=== PATIENT | male | born 2000 | race Caucasian/White ===

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

== ENCOUNTER 2021-01-11 20:57 | Emergency (ER) | payer MEDICAID, SELFPAY ==
--- NOTE | 2021-01-11 20:52 | ECG_ITS ---
APPROVED REPORT Exam: Resting ECG HR:71 bpm ECG Measurements Heart Rate 71 AXES [place] 156 P 76 QRSd 92 QRS 77 QT 360 T 62 QTc 391 Conclusion Normal sinus rhythm Normal ECG Electronically signed by : Mariusz Soriano MD 01/13/2021 12:18:48
[2021-01-11 20:57] VITALS: BP 124/89; PULSE 77; RESP 14; TEMP 37.7; O2SAT 99
--- NOTE | 2021-01-11 21:06 | XR_ITS ---
PROCEDURE INFORMATION: Exam: XR Chest Exam date and time: 01/11/2021 9:06 PM Age: 20 years old Clinical indication: Sternal or substernal pain; Additional info: angelica BEE TECHNIQUE: Imaging protocol: XR of the chest. Views: 2 views. COMPARISON: CR XR CHEST 2V 01/24/2020 7:47 PM FINDINGS: Lungs: Unremarkable. No consolidation. Benign elevation of the left hemidiaphragm, as on prior examination of 01/24/2020. Pleural spaces: Unremarkable. No pleural effusion. No pneumothorax. Heart/Mediastinum: Unremarkable. No cardiomegaly. Bones/joints: Unremarkable. IMPRESSION: There is no evidence of acute intrathoracic disease.
--- NOTE | 2021-01-11 21:06 | CT_ITS ---
PROCEDURE INFORMATION: Exam: CTA Chest With Contrast Exam date and time: 01/11/2021 9:06 PM Age: 20 years old Clinical indication: Sternal or substernal pain; Additional info: Chest pain, SOA TECHNIQUE: Imaging protocol: Computed tomographic angiography of the chest with contrast. 3D rendering (Not supervised by radiologist): MIP and/or 3D reconstructed images were created by the technologist. Radiation optimization: All CT scans at this facility use at least one of these dose optimization techniques: automated exposure control; mA and/or kV adjustment per patient size (includes targeted exams where dose is matched to clinical indication); or iterative reconstruction. Contrast material: ISOVUE 370; Contrast volume: 70 ml; Contrast route: INTRAVENOUS (IV); COMPARISON: CR XR CHEST 2V 01/11/2021 9:15 PM FINDINGS: Pulmonary arteries: The pulmonary trunk, main, and branch pulmonary arteries contain no filling defects. Aorta: Unremarkable. No aortic aneurysm. No aortic dissection. Lungs: Unremarkable. No consolidation. No masses. Pleural spaces: Unremarkable. No pneumothorax. No pleural effusion. Heart: No cardiomegaly. No pericardial effusion. Heart RV/LV ratio: Within normal limits. Coronary arteries: There is no evidence of significant coronary artery calcifications. Mediastinal space: No evidence of mediastinal or hilar mass. Increased density within the anterior mediastinum, representing residual thymic tissue within the anterior mediastinum. Lymph nodes: Unremarkable. No enlarged lymph nodes. Bones/joints: Unremarkable. No acute fracture. Soft tissues: Bilateral benign extrarenal pelves of the kidneys identified. This is felt to be of no clinical significance. IMPRESSION: 1. No evidence of main or branch pulmonary embolism. 2. No evidence of acute process within the chest.
[2021-01-11 21:16] LABS: Basophils % 0.9 % (0.1-2.0); Eosinophils # 0.1 K/mm3 (0.0-0.4); Hematocrit 43.8 % (42.0-52.0); Hemoglobin 15.1 g/dL (14.1-18.0); Lymphocytes # 1.6 K/mm3 (0.7-4.5); Lymphocytes % 36.2 % (10-50); Mean Corpuscular HGB Conc 34.4 g/dL (31.8-35.4); Mean Corpuscular Hemoglobin 30.2 pg (27.0-31.2); Mean Corpuscular Volume 87.7 fl (80-94); Mean Platelet Volume 7.5 fl (7.4-10.4); Monocytes # 0.3 K/mm3 (0.1-1.0); Monocytes % 6.4 % (1.7-9.3); Neutrophils # 2.5 K/mm3 (1.8-7.8); Neutrophils % 54.5 % (37.0-80.0); Platelet Count 274 K/mm3 (142-424); Red Blood Count 4.99 M/mm3 (4.60-6.20); Red Cell Distribution Width 12.5 % (11.5-17.5); White Blood Count 4.5 K/mm3 (4.5-13.0)
[2021-01-11 21:20] LABS: Alanine Aminotransferase 56 U/L (12-78); Albumin Level 4.5 g/dl (3.5-5.0); Alkaline Phosphatase 96 U/L (38-126); Anion Gap 7.9 mEq/L (5-15); Aspartate Amino Transferase 50 U/L (17-59); Bilirubin,Direct 0.1 mg/dl (0.0-0.4); Bilirubin,Indirect 1.3 mg/dL (0.0-0.9); Bilirubin,Total 1.4 mg/dl (0.2-1.3); Bilirubin,Unconjugated 1.3 mg/dL (0.0-1.1); Blood Urea Nitrogen 13 mg/dl (9-20); Calcium 9.2 mg/dl (8.4-10.2); Carbon Dioxide 29 mmol/L (22.0-30.0); Chloride 105 mmol/L (98-107); Creatinine Clearance Estimated 133 mL/min (50-200); Estimated Glomerular Filt Rate 125 ml/min (>60); GFR (African American) 151 ML/MIN (>60); Glucose 93 mg/dl (74-100); Potassium 3.9 mmoL/L (3.5-5.1); Sodium 138 mmol/L (136-145); Total Protein,Serum 7.2 g/dl (6.3-8.2)
--- NOTE | 2021-01-11 21:24 | HMH.EDSOB ---
ED Disposition Clinical Impression: Pleurisy Disposition: Home, Self-Care Condition on Discharge: Good Instructions: DI for Pleurisy Additional Instructions: use meds and see pcp for follow up Prescriptions: Meloxicam [Mobic 15 mg tab] 15 mg PO DAILY #10 tab Transmission Status: [id number] Referrals: Grant Mcdaniel [Primary Care Provider] - - Critical Care Critical Care Time: No Attestation: On 01/11/21, the high probability of a clinically significant, sudden or life threatening deterioration of the following system(s) required my full and direct attention, intervention and personal management. The time I documented below is in addition to time spent performing reported procedures but includes the following listed in this critical care notation. Medical Decision Making - Medical Records Medical records reviewed: Yes: I reviewed the patient's medical records. - Jimmy Inquiry Pt receiving controlled substance: No Vital Signs: 01/11/21 20:57 Temperature 99.8 F H Temperature Source Oral Pulse Rate [Right Radial] 77 Respiratory Rate 14 Blood Pressure [Right Arm] 124/89 Blood Pressure Mean [Right Arm] 100 Blood Pressure Source [Right Arm] Automatic Cuff Blood Pressure Position [Right Arm] Sitting 02 Sat by Pulse Oximetry 99 Oxygen Delivery Method Room Air - Lab Data Lab results reviewed: Yes: I reviewed the patient's lab results. Lab Results 01/11/21 20:59: WBC 4.5, RBC 4.99, Hgb 15.1, Hct 43.8, MCV 87.7, MCH 30.2, MCHC 34.4, RDW 12.5, Plt Count 274, MPV 7.5, Neut % (Auto) 54.5, Lymph % (Auto) 36.2, Mcpherson % (Auto) 6.4, Eos % (Auto) 2.0, Baso % (Auto) 0.9, Neut # (Auto) 2.5, Lymph # (Auto) 1.6, [place]son # (Auto) 0.3, Eos # (Auto) 0.1, Baso # (Auto) 0.0, ESR 3 01/11/21 20:59: Sodium 138, Potassium 3.9, Chloride 105, Carbon Dioxide 29, Anion Gap 7.9, BUN 13, Creatinine 0.80, Estimated Creat Clear 133, Estimated GFR 125, Est GFR ( Amer) 151, Glucose 93, Calcium 9.2, Total Bilirubin 1.4 H, Direct Bilirubin 0.1, Conjugated Bilirubin 0.0, Indirect Bilirubin 1.3 H, Unconjugated Bilirubin 1.3 H, AST 50, ALT 56, Alkaline Phosphatase 96, Troponin I < 0.01, C-Reactive Protein 0.5, Total Protein 7.2, Albumin 4.5, Procalcitonin < 0.030 Result diagrams: 01/11/21 20:59 01/11/21 20:59 Orders (Tests/Meds): ED MEDICATIONS Generic Name Dose Route Start Last Admin Trade Name Freq PRN Reason Stop Dose Admin Sodium Chloride 1,000 mls @ 999 mls/hr 01/11/21 21:15 01/11/21 21:15 Sod Chlor 0.9% 1000ml Bag IV 01/11/21 22:15 999 mls/hr .Q1H1M ALIVIA Administration Discontinued Medications Generic Name Dose Route Start Last Admin Trade Name Freq PRN Reason Stop Dose Admin Iopamidol 70 ml 01/11/21 21:37 01/11/21 21:38 Iopamidol-370 (76%);100ml Bottle IV 01/11/21 21:38 70 ml ONCE ONE Administration Ketorolac Tromethamine 30 mg 01/11/21 21:06 01/11/21 21:15 Ketorolac 30mg/Ml Vial IV 01/11/21 21:07 30 mg ONCE ONE Administration Methylprednisolone Sodium Succinate 125 mg 01/11/21 21:06 01/11/21 21:15 Methylprednisolone Sod Succ 125mg Vial IV 01/11/21 21:07 125 mg ONCE ONE Administration Sodium Chloride 40 ml 01/11/21 21:37 01/11/21 21:38 0.9 % Sodium Chloride 50 Ml Vial IV 01/11/21 21:38 40 ml ONCE ONE Administration Sodium Chloride 10 ml 01/11/21 21:37 01/11/21 21:38 Sodium Chloride 0.9% 10ml Syr (Rad Only) IV 01/11/21 21:38 10 ml ONCE ONE Administration ORDERS Category Date Time Status Troponin I Q3H Lab 01/12/21 00:15 Ordered Troponin I Q3H Lab 01/12/21 03:15 Ordered - Radiology Data #1 Image(s): Chest Image Reviewed: Yes I have reviewed radiologist's interpretation Preliminary Findings: Normal/NAD - CT Data CT Scan: Chest Time Received: 22:[address] Reviewed: Yes: I have viewed the radiologist's interpretation Preliminary Findings: Normal/NAD - ECG Data Tracing #1 Normal Sinus Rhythm: Yes
[2021-01-11 21:26] LABS: C-Reactive Protein 0.5 mg/L (0-4)
[2021-01-11 21:41] LABS: Procalcitonin < 0.030 ng/mL (0.0-2.0); Troponin I < 0.01 ng/ml (0.00-0.034)
--- NOTE | 2021-01-11 21:45 | ECG_ITS ---
APPROVED REPORT Exam: Resting ECG HR:70 bpm ECG Measurements Heart Rate 70 AXES NM 126 P 1 QRSd 104 QRS 50 QT 396 T 11 QTc 427 Conclusion Normal sinus rhythm Normal ECG Electronically signed by : Mariusz Soriano MD 01/13/2021 12:18:38
[2021-01-11 21:46] LABS: Erythrocyte Sedimentation Rate 3 mm/hr (0-15)
[2021-01-11 22:43] VITALS: BP 113/70; PULSE 81; RESP 16; TEMP 36.8; O2SAT 99
== END 2021-01-11 23:01 | disposition home or self-care (01) ==
PROVIDERS: Emergency Provider Emergency Medicine; PCP Family Medicine
DX: R09.1 Pleurisy (principal); F41.8 Other specified anxiety disorders
CPT/HCPCS: 71046; 71275; 80048; 80076; 84145; 84484; 85025; 85651; 86140; 93005; 96365; 96375; 99283; Q9967

== ENCOUNTER → 2021-01-28 11:46 | Outpatient (CLI) | payer MEDICAID, SELFPAY | PROVIDERS: Visit Provider Nurse Practitioner | DX: Z20.822 Contact with and (suspected) exposure to COVID-19 (principal) | CPT/HCPCS: C9803; U0003; U0005 ==

== ENCOUNTER 2021-01-28 11:52 | Emergency (ER) | payer MEDICAID, SELFPAY ==
[2021-01-28 12:15] VITALS: BP 0/0; PULSE 0; RESP 0; TEMP -17.7; TEMP 0
== END 2021-01-28 12:17 | disposition left against medical advice (07) ==
LOC: UTC 11:57
PROVIDERS: Emergency Provider Nurse Practitioner; PCP Family Medicine
DX: Z53.21 Procedure and treatment not carried out due to patient leaving prior to being seen by health care provider (principal)

== ENCOUNTER 2021-02-01 15:14 | Emergency (ER) | payer MEDICAID, SELFPAY ==
[2021-02-01 15:15] VITALS: BP 121/81; PULSE 89; RESP 19; TEMP 36.9; O2SAT 98; BMI 19.3
--- NOTE | 2021-02-01 15:34 | HMH.EDUTC ---
[facility] [place] Disposition Clinical Impression: Sinusitis Qualifiers: Sinusitis location: maxillary Chronicity: acute Recurrence: non-recurrent Qualified Code(s): J01.00 - Acute maxillary sinusitis, unspecified Disposition: Home, Self-Care Condition on Discharge: Good Instructions: DI for Sinusitis Additional Instructions: Start antibiotic patient to take as ordered for a full length of time even if you feel better. Sinus infections do not get better overnight. It may take 2-3 days to notice much improvement so be sure to use conservative measures as discussed for symptoms. Flonase 1 spray each nostril daily to help with nasal congestion, sinus and ear pressure/information Increase fluids Humidifier/vaporizer as needed Tylenol and ibuprofen as needed for fever or pain. If symptoms do not improve or get worse return or be seen in the ER Follow-up with primary care this week Prescriptions: Fluticasone Propionate [Flonase 50mcg nasal spray 16gm] 1 spr NS DAILY 14 Days #9.9 ml Transmission Status: Pending to [id number] Azithromycin [Zithromax 250mg tab] 250 mg PO DIRECTED #6 tab Transmission Status: Pending to [id number] Referrals: Grant Mcdaniel [Primary Care Provider] - Time of Disposition: 15:37 Medical Decision Making - Jimmy Inquiry Pt receiving controlled substance: No Vital Signs: 02/01/21 15:15 Temperature 98.4 F Temperature Source Oral Pulse Rate [Right Brachial] 89 Respiratory Rate 19 Blood Pressure [Right Arm] 121/81 Blood Pressure Mean [Right Arm] 94 Blood Pressure Source [Right Arm] Automatic Cuff Blood Pressure Position [Right Arm] Sitting 02 Sat by Pulse Oximetry 98 Oxygen Delivery Method Room Air [facility] [place] HPI - General Chief complaint: Urgent [facility] Stated complaint: sore throat, cough,vomiting, SOUZA,runny nose Time Seen by Provider: 02/01/21 15:35 Mode of Arrival: Ambulatory Source of Information: Patient, Parent(s) Limitations: No Limitations Description of Symptoms (Recalled from Triage Doc. by RN): PATIENT C/O COUGH, SNEEZING, CHEST CONGESTION, HEADACHES, RUNNY NOSE AND FEVER HEENT Symptoms (Recalled from RN notes): Yes Resp Symptoms (Recalled from RN notes): Yes Skin Symptoms (Recalled from RN notes): No MS Symptoms (Recalled from RN notes): No Functional Status (Recalled from RN notes): WNL - History of Present Illness Provider Complaint: 20 yr old male presents for runny nose,coughing up green sputum,body aches,headache,sore throat and pain in chest with coughing for 4 days. - Related Data Previous Rx's Medication Instructions Recorded Azithromycin [Zithromax 250mg 250 mg PO DIRECTED #6 tab 02/01/21 tab] Fluticasone Propionate [Flonase 1 spr NS DAILY 14 Days #9.9 ml 02/01/21 50mcg nasal spray 16gm] Allergies Allergy/AdvReac Type Severity Reaction Status Date / Time Penicillins [PENICILLINS] Allergy Intermediate Verified 05/04/19 18:32 - Worker's Comp Is this a Worker's Comp case?: No [facility] History - Hepatitis A Screen Drug use history?: No High risk sexual behaviors?: No History of sexually transmitted infection?: No Currently employed?: No Childcare worker?: No Do you have indoor plumbing?: Yes Do you have electricity?: Yes Attestation statement:: This patient has been screened for Hepatitis A risk factors. I have reviewed the patient's past medical history: Yes Medical History: Reports:: Anxiety, Depression Denies:: Cancer, Diabetes Mellitus Type 1, Diabetes Mellitus Type 2, Internal Pacemaker, MRSA Other Medical History: Reports: Other Laterality Cases: Right: Other Other Surgeries: Yes: No Previous Surgery, Other. No: Pacemaker Amputation: No Fractures: Yes (right thumb) Comment: Teeth removed - Social History Smoking Status: Never smoker Alcohol Intake: never Alcohol Intake Frequency:: 0-2 drinks per day Substance Use Type: denies use Occupational Status: employed Housing: house Household Members: [facility]
[2021-02-01 15:41] VITALS: BP 121/81; PULSE 89; RESP 19; TEMP 36.9; O2SAT 98
[2021-02-01 15:49] LABS: Adenovirus,PCR Not Detected (NotDetected); Bordetella Pertussis Not Detected (NotDetected); Chlamydophila Pneumoniae, PCR Not Detected (NotDetected); Coronavirus 19, PCR Not Detected (NotDetected); Coronavirus 229E Not Detected (NotDetected); Coronavirus NL63 Not Detected (NotDetected); Coronavirus OC43 Not Detected (NotDetected); Coronovirus HKU1,PCR Not Detected (NotDetected); Human Metapneumovirus Not Detected (NotDetected); Influenza A, PCR Not Detected (NotDetected); Influenza AH1, 2009 Not Detected (NotDetected); Influenza AH1, PCR Not Detected (NotDetected); Influenza AH3,PCR Not Detected (NotDetected); Influenza B, PCR Not Detected (NotDetected); Mycoplasma Pneumoniae, PCR Not Detected (NotDetected); Parainfluenza 1, PCR Not Detected (NotDetected); Parainfluenza 2, PCR Not Detected (NotDetected); Parainfluenza 3, PCR Not Detected (NotDetected); Parainfluenza 4, PCR Not Detected (NotDetected); Respiratory Syncytial Virus Not Detected (NotDetected); Rhinovirus/Enterovirus Not Detected (NotDetected)
== END 2021-02-01 15:45 | disposition home or self-care (01) ==
PROVIDERS: Emergency Provider Nurse Practitioner Family; PCP Family Medicine
DX: J01.00 Acute maxillary sinusitis, unspecified (principal); Z20.822 Contact with and (suspected) exposure to COVID-19; F41.8 Other specified anxiety disorders
CPT/HCPCS: 87581; 87632; 87798; 99202; C9803; G0463; U0003; U0005

== ENCOUNTER 2021-08-03 13:35 | Emergency (ER) | payer MEDICAID, SELFPAY ==
[2021-08-03 13:48] VITALS: BP 121/76; PULSE 82; RESP 18; TEMP 36.8; O2SAT 99
--- NOTE | 2021-08-03 14:09 | CT_ITS ---
FINAL REPORT CLINICAL HISTORY: RLQ pain, n/v COMPARISON: January 24, 2020 FINDINGS: CT OF THE ABDOMEN AND PELVIS WITH CONTRAST Axial CT images of the abdomen and pelvis were obtained after the administration of intravenous contrast. Coronal reformatted images were also obtained and reviewed.This study was performed with techniques to keep radiation doses as low as reasonably achievable (ALARA). Individualized dose reduction techniques using automated exposure control or adjustment of mA and/or kV according to the patient's size were employed. Abdomen: The lung bases are clear. The heart is normal in size. The liver has an unremarkable appearance, without evidence of mass or biliary ductal dilatation. The gallbladder is not identified and could be surgically absent. The spleen is unremarkable. No adrenal mass is present. The pancreas has an unremarkable appearance. The kidneys are normal, without evidence of mass or hydronephrosis. The aorta is normal in caliber. There is no free fluid or adenopathy. No mass or abnormal fluid collection is seen. Pelvis: The appendix partially visualized and normal where seen. The urinary bladder is unremarkable. No inflammatory process is seen. There is no evidence of mass or adenopathy. There is no evidence of bowel obstruction. There is mild wall thickening of the transverse colon and hepatic flexure of the colon of uncertain significance. IMPRESSION: Partially visualized appendix is normal were seen. Mild wall thickening of the transverse colon and hepatic flexure of the colon of uncertain significance could represent mild colitis. Gallbladder not identified and possibly surgically absent. Reviewed, Interpreted and Dictated by Felipe Solis III, MD Transcribed by Crispin Holman Authenticated and [facility]
--- NOTE | 2021-08-03 14:09 | HMH.EDGENADL ---
ED Disposition Clinical Impression: Colitis Abdominal pain Qualifiers: Abdominal location: right lower quadrant Qualified Code(s): R10.31 - Right lower quadrant pain Disposition: Home, Self-Care Condition on Discharge: Fair Instructions: DI for Acute Abdominal Pain, DI for Colitis Additional Instructions: You have been evaluated for abdominal pain, diagnosed with colitis. This is inflammation of the colon, and the right side of the abdomen. Your appendix was seen on the CT scan and does not appear to be infected at this time. Please take Bentyl for cramps. Zofran for nausea. Tylenol and ibuprofen for pain and fever. Follow-up closely with your primary care doctor within 24 to 48 hours. Follow a clear liquid diet. We cannot totally exclude a very early appendicitis. Please return to the emergency department at once for any new or worsening symptoms, pain, fevers, inability to eat, other concerns. Prescriptions: Ondansetron [Zofran 4mg ODT] 4 mg PO Q6HP PRN #12 tab PRN Reason: Nausea Transmission Status: [id number] Dicyclomine HCl [Bentyl 10mg capsule] 10 mg PO QID PRN #20 cap PRN Reason: Cramping Transmission Status: Pending [id number] Referrals: Grant Mcdaniel [Primary Care Provider] - Time of Disposition: 16:03 - Critical Care Critical Care Time: No Attestation: On 08/03/21, the high probability of a clinically significant, sudden or life threatening deterioration of the following system(s) required my full and direct attention, intervention and personal management. The time I documented below is in addition to time spent performing reported procedures but includes the following listed in this critical care notation. Medical Decision Making - Medical Records Medical records reviewed: Yes: I reviewed the patient's medical records. - Jimmy Inquiry Pt receiving controlled substance: No Vital Signs: 08/03/21 13:48 Temperature 98.2 F Temperature Source Oral Pulse Rate [Left Radial] 82 Respiratory Rate 18 Blood Pressure [Left Arm] 121/76 Blood Pressure Mean [Left Arm] 91 Blood Pressure Source [Left Arm] Automatic Cuff Blood Pressure Position [Left Arm] Sitting 02 Sat by Pulse Oximetry 99 Oxygen Delivery Method Room Air - Lab Data Lab Results 08/03/21 14:00: WBC 4.3 L, RBC 5.17, Hgb 15.8, Hct 43.6, MCV 84.2, MCH 30.6, MCHC 36.3 H, RDW 12.1, Plt Count 239, MPV 7.1 L, Neut % (Auto) 51.3, Lymph % (Auto) 37.4, Lea % (Auto) 8.3, Eos % (Auto) 2.4, Baso % (Auto) 0.6, Neut # (Auto) 2.2, Lymph # (Auto) 1.6, Lea # (Auto) 0.4, Eos # (Auto) 0.1, Baso # (Auto) 0.0 08/03/21 14:00: Sodium 139, Potassium 3.9, Chloride 103, Carbon Dioxide 27, Anion Gap 12.9, BUN 15, Creatinine 0.80, Estimated Creat Clear 132, Estimated GFR 123, Est GFR ( Amer) 149, Glucose 86, Calcium 9.6, Total Bilirubin 3.6 H, AST 68 H, ALT 107 H, Alkaline Phosphatase 101, Total Protein 7.7, Albumin 4.7, Globulin 3.0, Albumin/Globulin Ratio 1.6, Lipase 52 Result diagrams: 08/03/21 14:00 08/03/21 14:00 Orders (Tests/Meds): ED MEDICATIONS Discontinued Medications Generic Name Dose Route Start Last Admin Trade Name [place] PRN Reason Stop Dose Admin Iopamidol 75 ml 08/03/21 14:22 08/03/21 14:23 Iopamidol-370 (76%);100ml Bottle IV 08/03/21 14:23 75 ml ONCE ONE Administration Ketorolac Tromethamine 15 mg 08/03/21 14:09 08/03/21 15:40 Ketorolac 30mg/Ml Vial IV 08/03/21 14:10 15 mg ONCE ONE Administration Ondansetron HCl 4 mg 08/03/21 14:09 08/03/21 15:41 Ondansetron 4mg/2ml Vial IV 08/03/21 14:10 4 mg ONCE ONE Administration Sodium Chloride 10 ml 08/03/21 14:22 08/03/21 14:23 Sodium Chloride 0.9% 10ml Syr (Rad Only) IV 08/03/21 14:23 10 ml ONCE ONE Administration ORDERS Category Date Time Status Rapid PCR Covid and Flu A/B Stat Lab 08/03/21 15:01 Ordered Urinalysis and Microscopic Stat Lab 08/03/21 14:09 Ordered - CT Data CT Scan
[2021-08-03 14:18] LABS: Basophils % 0.6 % (0.1-2.0); Eosinophils # 0.1 K/mm3 (0.0-0.4); Eosinophils % 2.4 % (0.1-12.0); Hematocrit 43.6 % (42.0-52.0); Hemoglobin 15.8 g/dL (14.1-18.0); Lymphocytes # 1.6 K/mm3 (0.7-4.5); Lymphocytes % 37.4 % (10-50); Mean Corpuscular HGB Conc 36.3 g/dL (31.8-35.4); Mean Corpuscular Hemoglobin 30.6 pg (27.0-31.2); Mean Corpuscular Volume 84.2 fl (80-94); Mean Platelet Volume 7.1 fl (7.4-10.4); Monocytes # 0.4 K/mm3 (0.1-1.0); Monocytes % 8.3 % (1.7-9.3); Neutrophils # 2.2 K/mm3 (1.8-7.8); Neutrophils % 51.3 % (37.0-80.0); Platelet Count 239 K/mm3 (142-424); Red Blood Count 5.17 M/mm3 (4.60-6.20); Red Cell Distribution Width 12.1 % (11.5-17.5); White Blood Count 4.3 K/mm3 (4.5-13.0)
[2021-08-03 14:22] LABS: Alanine Aminotransferase 107 U/L (12-78); Albumin Level 4.7 g/dl (3.5-5.0); Albumin/Globulin Ratio 1.6 (1.1-1.8); Alkaline Phosphatase 101 U/L (38-126); Anion Gap 12.9 mEq/L (5-15); Aspartate Amino Transferase 68 U/L (17-59); Bilirubin,Total 3.6 mg/dl (0.2-1.3); Blood Urea Nitrogen 15 mg/dl (9-20); Calcium 9.6 mg/dl (8.4-10.2); Carbon Dioxide 27 mmol/L (22.0-30.0); Chloride 103 mmol/L (98-107); Creatinine Clearance Estimated 132 mL/min (50-200); Estimated Glomerular Filt Rate 123 ml/min (>60); GFR (African American) 149 ML/MIN (>60); Glucose 86 mg/dl (74-100); Lipase 52 U/L (23-300); Potassium 3.9 mmoL/L (3.5-5.1); Sodium 139 mmol/L (136-145); Total Protein,Serum 7.7 g/dl (6.3-8.2)
[2021-08-03 16:43] VITALS: BP 102/64; PULSE 55; RESP 18; TEMP 36.8; O2SAT 99
== END 2021-08-03 16:45 | disposition home or self-care (01) ==
PROVIDERS: Emergency Provider Emergency Medicine; PCP Family Medicine
DX: K52.9 Noninfective gastroenteritis and colitis, unspecified; Z88.0 Allergy status to penicillin
CPT/HCPCS: 74177; 80053; 83690; 85025; 96374; 96375; 99284; J2405; Q9967

== ENCOUNTER 2021-10-30 23:56 | Emergency (ER) | payer MEDICAID, SELFPAY ==
[2021-10-30 23:57] VITALS: BP 158/86; PULSE 87; RESP 19; TEMP 36.8; O2SAT 97; BMI 19.3
--- NOTE | 2021-10-30 23:57 | ECG_ITS ---
APPROVED REPORT Exam: Resting ECG HR:70 bpm ECG Measurements Heart Rate 70 AXES AZ 163 P 71 QRSd 92 QRS 65 QT 343 T 68 QTc 365 Conclusion SINUS RHYTHM NORMAL ECG UNCONFIRMED REPORT Electronically signed by : Mariusz Soriano MD 11/01/2021 15:25:38
[2021-10-31] VITALS (9 sets, daily range): BP systolic 112–118; BP diastolic 64–72; PULSE 58–74; RESP 12–18; TEMP 36.6–36.9; O2SAT 97–99; BMI 19.3
--- NOTE | 2021-10-31 00:04 | XR_ITS ---
PROCEDURE INFORMATION: Exam: XR Chest Exam date and time: 10/31/2021 12:20 AM Age: 21 years old Clinical indication: Cough and fever; Additional info: Fever, cough, chest pain, poss covid TECHNIQUE: Imaging protocol: Radiologic exam of the chest. Views: 2 views. COMPARISON: CR XR CHEST 2V 01/11/2021 9:15 PM FINDINGS: Lungs: Unremarkable. No consolidation. Pleural spaces: Unremarkable. No pleural effusion. No pneumothorax. Heart/Mediastinum: Unremarkable. No cardiomegaly. Bones/joints: Unremarkable. IMPRESSION: No acute findings.
--- NOTE | 2021-10-31 00:07 | CT_ITS ---
PROCEDURE INFORMATION: Exam: CTA Chest With Contrast Exam date and time: 10/31/2021 12:28 AM Age: 21 years old Clinical indication: Cough and dyspnea and fever and shortness of breath; Additional info: SOA, fever, dyspnea, HX covid poss new covid TECHNIQUE: Imaging protocol: Computed tomographic angiography of the chest with contrast. 3D rendering (Not supervised by radiologist): MIP and/or 3D reconstructed images were created by the technologist. Radiation optimization: All CT scans at this facility use at least one of these dose optimization techniques: automated exposure control; mA and/or kV adjustment per patient size (includes targeted exams where dose is matched to clinical indication); or iterative reconstruction. Contrast material: ISOVUE 370; Contrast volume: 70 ml; Contrast route: INTRAVENOUS (IV); COMPARISON: CT ANGIO CHEST PE PROTOCOL 01/11/2021 9:28 PM FINDINGS: Pulmonary arteries: Normal. No pulmonary emboli. Aorta: Unremarkable. No aortic aneurysm. No aortic dissection. Lungs: Unremarkable. No consolidation. No masses. Pleural spaces: Unremarkable. No pneumothorax. No pleural effusion. Heart: Unremarkable. No cardiomegaly. No pericardial effusion. Lymph nodes: Unremarkable. No enlarged lymph nodes. Bones/joints: Unremarkable. No acute fracture. Soft tissues: Unremarkable. IMPRESSION: No acute findings.
[2021-10-31 00:12] LABS: Coronavirus 19, PCR Not Detected (NotDetected); Influenza A, PCR Not Detected (NotDetected); Influenza B, PCR Not Detected (NotDetected)
[2021-10-31 00:13] LABS: Basophils # 0.1 K/mm3 (0-0.2); Basophils % 1.3 % (0.1-2.0); Eosinophils # 0.3 K/mm3 (0.0-0.4); Hematocrit 42.8 % (42.0-52.0); Hemoglobin 14.9 g/dL (14.1-18.0); Lymphocytes # 1.9 K/mm3 (0.7-4.5); Lymphocytes % 28.2 % (10-50); Mean Corpuscular HGB Conc 34.7 g/dL (31.8-35.4); Mean Corpuscular Hemoglobin 30.6 pg (27.0-31.2); Mean Corpuscular Volume 88.2 fl (80-94); Mean Platelet Volume 7.4 fl (7.4-10.4); Monocytes # 0.6 K/mm3 (0.1-1.0); Monocytes % 8.1 % (1.7-9.3); Neutrophils % 58.4 % (37.0-80.0); Platelet Count 239 K/mm3 (142-424); Red Blood Count 4.85 M/mm3 (4.60-6.20); Red Cell Distribution Width 12.9 % (11.5-17.5); White Blood Count 6.9 K/mm3 (4.5-13.0)
[2021-10-31 00:15] LABS: Chloride 103 mmol/L (98-107); Potassium 3.7 mmoL/L (3.5-5.1); Sodium 141 mmol/L (136-145)
[2021-10-31 00:17] LABS: Alanine Aminotransferase 60 U/L (12-78); Alkaline Phosphatase 144 U/L (38-126); Anion Gap 11.7 mEq/L (5-15); Aspartate Amino Transferase 52 U/L (17-59); Bilirubin,Direct 0.3 mg/dl (0.0-0.4); Bilirubin,Indirect 2.3 mg/dL (0.0-0.9); Bilirubin,Total 2.6 mg/dl (0.2-1.3); Bilirubin,Unconjugated 2.3 mg/dL (0.0-1.1); Blood Urea Nitrogen 14 mg/dl (9-20); Carbon Dioxide 30 mmol/L (22.0-30.0); Creatinine Clearance Estimated 113 mL/min (50-200); Estimated Glomerular Filt Rate 108 ml/min (>60); GFR (African American) 130 ML/MIN (>60)
[2021-10-31 00:18] LABS: Albumin Level 4.8 g/dl (3.5-5.0); Calcium 8.6 mg/dl (8.4-10.2); Glucose 87 mg/dl (74-100); Total Protein,Serum 7.5 g/dl (6.3-8.2)
[2021-10-31 00:23] LABS: C-Reactive Protein 4.9 mg/L (0-4)
--- NOTE | 2021-10-31 00:29 | PC.NURSE ---
Pt gone to RAD
--- NOTE | 2021-10-31 00:38 | PC.NURSE ---
pt back from RAD
[2021-10-31 00:47] LABS: Troponin I < 0.01 ng/ml (0.00-0.034)
[2021-10-31 01:00] LABS: Procalcitonin 0.036 ng/mL (0.0-2.0)
[2021-10-31 01:34] LABS: Erythrocyte Sedimentation Rate 7 mm/hr (0-15)
--- NOTE | 2021-10-31 02:25 | PC.NURSE ---
Pt resting in bed. No needs or complaints voiced.
[2021-10-31 02:48] LABS: Troponin I < 0.01 ng/ml (0.00-0.034)
[2021-10-31 03:09] LABS: Amylase 61 U/L (30-110); Lipase 66 U/L (23-300)
--- NOTE | 2021-10-31 03:30 | HMH.EDCP ---
Discharge Plan Disposition Patient Disposition: Home, Self-Care Prescriptions Prescriptions: New azithromycin [azithromycin] 250 mg tablet 250 mg PO DIRECTED Qty: 6 0RF Rx Instructions: Take two (2) tablets on day #1, then one (1) tablet day #2 thru #5 No Action dextroamphetamine-amphetamine 10 mg capsule,extended release 24hr 10 mg PO DAILY Label Comments: TAKE 1 CAPSULE BY MOUTH DAILY. albuterol sulfate [ProAir HFA] 90 mcg/actuation HFA aerosol inhaler 1 - 2 puff INHALATION Q6HP PRN (Reason: shortness of breath/wheezing) Label Comments: INHALE 2 PUFFS INTO THE LUNGS FOUR TIMES DAILY: AT 8 AM, NOON, 4 PM & 8 PM escitalopram oxalate 10 mg tablet 10 mg PO DAILY Label Comments: TAKE 1 TABLET BY MOUTH ONCE DAILY. Referrals Follow up/Referrals: Grant Mcdaniel [Primary Care Provider] - See instructions Clinical Impressions Clinical Impression: Bronchitis Instructions Patient Instructions: DI for Atypical Chest Pain Discharge ED Provider: Sergey Hernandez Chest Pain HPI General Chief Complaint: Chest Pain Stated Complaint: chest pain Time Seen by Provider: 10/31/21 03:31 Mode of Arrival: Wheelchair Source of Information: Patient and Medical Record Limitations: No Limitations Description of Symptoms (Recalled from ER Triage Doc. by RN): Pt c/o R&L lateral chest pain, soa on extertion, productive cough, fever, and chills. Pt states most symptoms began yesterday (10/29) but the chest pain began tonight (10/30). 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 History of Present Illness HPI narrative: chest pain and sob with fever and prod cough x 2 days MD complaint: chest pain Onset (ago): day(s) Duration: intermittent Pain location: left chest Severity: moderate Quality: aching Risk Factors for CAD: Family Hx of CAD JOS Score for Non-Stemi Age of Patient: <30 years old Heart Rate: 50-69 bpm Systolic Blood Pressure: 100-119 mmHg Serum Creatinine: 0.80-1.19 mg/dl CHF [place] Class: I-No CHF Other Risk Factors: None Non-Stemi Risk Score: 53 Related Data Home Medications Medication Instructions Recorded Confirmed albuterol sulfate 90 mcg/actuation 1 - 2 puff inhalation Q6HP PRN 10/31/21 10/31/21 aerosol inhaler (ProAir HFA) shortness of breath/wheezing dextroamphetamine-amphetamine ER 10 mg PO DAILY adhd 10/31/21 10/31/21 10 mg 24hr capsule,extend release escitalopram oxalate 10 mg tablet 10 mg PO DAILY Anxiety 10/31/21 10/31/21 Previous Rx's Medication Instructions Recorded azithromycin 250 mg tablet 250 mg PO DIRECTED #6 tabs 10/31/21 Allergies Allergy/AdvReac Type Severity Reaction Status Date / Time Penicillins [PENICILLINS] Allergy Intermediate Verified 05/04/19 18:32 PFSH PFS Social History Smoking Status: Current every day smoker second hand exposure: No alcohol intake: never substance use type: denies use current occupational status: employed Travel in the last 8 weeks: None household members: family housing: house current occupational exposures/hazards: No caffeine: Yes ROS Obtained: Yes All systems reviewed & no additional complaints except as documented Physical Exam General General appearance: alert Head Head exam: normocephalic Eye Eye exam: Present PERRL and EOMI; Absent scleral icterus ENT ENT exam: Present mucous membranes moist Neck Neck exam: Present trachea midline Respiratory Respiratory exam: Present normal lung sounds bilaterally; Absent respiratory distress Cardiovascular Cardiovascular exam: Present regular rate; Absent systolic murmur Abdominal Exam Abdominal exam: Present soft; Absent organomegaly Extremities Exam Extremities exam: Present full ROM Neurological Exam Neurological exam: Present alert, oriented X3 and CN II-XII intact Psychiatric Psychiatric exam: Present normal affect Skin Skin exam: Absent rash Medical Decision Making Medical Records Medical records reviewed:
--- NOTE | 2021-10-31 03:32 | PC.NURSE ---
Pt and family updated on expected wait times. No needs or complaints voiced.
--- NOTE | 2021-10-31 03:37 | PC.NURSE ---
at BS speaking with pt about results
== END 2021-10-31 03:55 | disposition home or self-care (01) ==
PROVIDERS: Emergency Provider Emergency Medicine; PCP Family Medicine
DX: R07.9 Chest pain, unspecified (principal); R06.02 Shortness of breath; R50.9 Fever, unspecified; F17.210 Nicotine dependence, cigarettes, uncomplicated; Z20.822 Contact with and (suspected) exposure to COVID-19; Z79.51 Long term (current) use of inhaled steroids; Z79.899 Other long term (current) drug therapy; Z88.0 Allergy status to penicillin; Z82.49 Family history of ischemic heart disease and other diseases of the circulatory system
CPT/HCPCS: 71046; 71275; 80048; 80076; 82150; 83690; 84145; 84484; 85025; 85651; 86140; 93005; 96361; 96374; 96375; 99285; C9803; J2405; Q9967; U0003; U0005

== ENCOUNTER 2021-11-07 22:22 | Emergency (ER) | payer MEDICAID, SELFPAY ==
[2021-11-07 22:24] VITALS: BP 145/86; PULSE 111; RESP 16; TEMP 37.2; O2SAT 98; BMI 18.6
--- NOTE | 2021-11-07 22:28 | XR_ITS ---
PROCEDURE INFORMATION: Exam: XR Left Wrist Exam date and time: 11/07/21 10:30 PM Age: 21 years old Clinical indication: Injury or trauma; Fall; Additional info: Injury, fall while roller skating TECHNIQUE: Imaging protocol: Radiologic exam of the Left wrist. Views: 3 or more views. COMPARISON: CR FOREAL FOREARM-LT 01/30/17 12:24 AM FINDINGS: Bones/joints: Normal. Soft tissues: Normal. IMPRESSION: No acute findings.
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
[2021-11-07 23:43] VITALS: BP 116/74; PULSE 93; RESP 16; TEMP 36.7; O2SAT 95
== END 2021-11-07 23:50 | disposition home or self-care (01) ==
PROVIDERS: Emergency Provider Emergency Medicine; PCP Family Medicine
DX: S69.92XA Unspecified injury of left wrist, hand and finger(s), initial encounter (principal); R06.02 Shortness of breath; F17.210 Nicotine dependence, cigarettes, uncomplicated; Z79.51 Long term (current) use of inhaled steroids; Z79.899 Other long term (current) drug therapy; Z88.0 Allergy status to penicillin; W17.89XA Other fall from one level to another, initial encounter; Y93.21 Activity, ice skating
CPT/HCPCS: 73110; 99283

== ENCOUNTER 2022-03-02 20:39 | Emergency (ER) | payer MEDICAID, SELFPAY ==
[2022-03-02 20:41] VITALS: BP 123/88; PULSE 78; RESP 18; TEMP 37.1; O2SAT 99; BMI 19.2
[2022-03-02 21:00] VITALS: BP 115/75; PULSE 88; RESP 16; O2SAT 97
--- NOTE | 2022-03-02 21:08 | PC.NURSE ---
Rechecked pt condition. No needs or complaints voiced at this time.
[2022-03-02 21:30] VITALS: BP 113/74; PULSE 87; O2SAT 97
--- NOTE | 2022-03-02 21:35 | HMH.EDANX ---
Discharge Plan Disposition Patient Disposition: Home, Self-Care Chief Complaint: Anxiety Prescriptions Prescriptions: No Action dextroamphetamine-amphetamine 10 mg capsule,extended release 24hr 10 mg PO DAILY Label Comments: TAKE 1 CAPSULE BY MOUTH DAILY. Referrals Follow up/Referrals: Grant Mcdaniel [Primary Care Provider] - See instructions Clinical Impressions Clinical Impression: Acute anxiety Instructions Patient Instructions: Anxiety Disorders Discharge ED Provider: Sergey Hernandez Anxiety HPI General Chief Complaint: Anxiety Stated Complaint: PTSD, anxiety Time Seen by Provider: 03/02/22 21:35 Mode of Arrival: Family Vehicle Source of Information: Patient, Law Enforcement and Medical Record Limitations: No Limitations Description of Symptoms (Recalled from ER Triage Doc. by RN): Pt c/o PTSD attack and anxitey. States he has a counselor, Abimael Lorenzo, in [facility] but has not spolen to him. Per PD officer, pt was talking to a friend and that friend became worried about patient's mental state. Pt is A&Ox4, he denies any self harm or malcious intnent. He is anxious but calm and appropriate with staff. History of Present Illness HPI narrative: pt with acute episode of anxiety - hx of same - no self- harm thoughts and no delusions or pscychosis complaint: anxiety Onset (ago): hour(s) Severity: moderate Place: home History of similar episodes: Yes Associated symptoms: denies other symptoms Related Data Home Medications Medication Instructions Recorded Confirmed dextroamphetamine-amphetamine ER 10 mg PO DAILY adhd 10/31/21 10/31/21 10 mg 24hr capsule,extend release Allergies Allergy/AdvReac Type Severity Reaction Status Date / Time Penicillins [PENICILLINS] Allergy Intermediate Verified 05/04/19 18:32 [facility] Disclaimer: The information contained in this section may have been updated after the patient was seen, as this information can be updated by other users. Medical History (Updated 03/02/22 @ 21:41 by Sergey Hernandez MD) Anxiety Depression PTSD (post-traumatic stress disorder) Surgical History (Updated 03/02/22 @ 20:52 by Balbina Duncan RN) History of dental surgery Hx of cholecystectomy Hx of thumb surgery Social History Smoking Status: Current every day smoker second hand exposure: No alcohol intake: never substance use type: denies use current occupational status: employed Travel in the last 8 weeks: None household members: family housing: house current occupational exposures/hazards: No caffeine: Yes ROS Obtained: Yes All systems reviewed & no additional complaints except as documented Physical Exam General General appearance: alert Head Head exam: normocephalic Eye Eye exam: Present PERRL and EOMI ENT ENT exam: Present mucous membranes moist Neck Neck exam: Absent trachea midline Respiratory Respiratory exam: Absent respiratory distress Cardiovascular Cardiovascular exam: Present regular rate Abdominal Exam Abdominal exam: Present soft Extremities Exam Extremities exam: Present full ROM Neurological Exam Neurological exam: Present alert, oriented X3 and CN II-XII intact Psychiatric Psychiatric exam: Present anxious; Absent manic, homicidal ideation or suicidal ideation Skin Skin exam: Absent rash Medical Decision Making Medical Records Medical records reviewed: Yes I reviewed the patient's medical records. Jimmy Inquiry Pt receiving controlled substance: No Vital Signs: 03/02/22 20:41 03/02/22 21:00 Temperature 98.8 F Temperature Source Oral Pulse Rate 88 Pulse Rate [Right] 78 Respiratory Rate 18 16 Blood Pressure 115/75 Blood Pressure [Right Arm] 123/88 Blood Pressure Mean 88 Blood Pressure Mean [Right Arm] 99 Blood Pressure Source [Right Arm] Automatic Cuff 02 Sat by Pulse Oximetry 99 97 Oxygen Delivery Method Room Air Lab Data Lab results reviewed: Yes I reviewed the
[2022-03-02 22:00] VITALS: BP 100/64; BP 113/74; PULSE 88; PULSE 91; RESP 16; RESP 18; TEMP 36.6; O2SAT 97; O2SAT 98
== END 2022-03-02 22:20 | disposition home or self-care (01) ==
PROVIDERS: Emergency Provider Emergency Medicine; PCP Family Medicine
DX: F41.9 Anxiety disorder, unspecified (principal); F43.12 Post-traumatic stress disorder, chronic; F17.210 Nicotine dependence, cigarettes, uncomplicated; Z98.818 Other dental procedure status; Z90.49 Acquired absence of other specified parts of digestive tract
CPT/HCPCS: 99283; 99284

== ENCOUNTER 2022-05-11 21:44 | Emergency (ER) | payer MEDICAID, SELFPAY ==
[2022-05-11] VITALS (7 sets, daily range): BP systolic 107–143; BP diastolic 68–92; PULSE 66–93; RESP 16–18; TEMP 36.8; O2SAT 96–100
--- NOTE | 2022-05-11 21:58 | ECG_ITS ---
APPROVED REPORT Exam: Resting ECG HR:72 bpm ECG Measurements Heart Rate 72 AXES TN 167 P 60 QRSd 94 QRS 48 QT 362 T 44 QTc 386 Conclusion SINUS RHYTHM NORMAL ECG UNCONFIRMED REPORT Electronically signed by : Mariusz Soriano MD 05/14/2022 16:43:20
--- NOTE | 2022-05-11 21:58 | XR_ITS ---
PROCEDURE INFORMATION: Exam: XR Chest Exam date and time: 05/11/2022 9:56 PM Age: 21 years old Clinical indication: Sternal or substernal pain; Additional info: Chest pain for 2 days. No chest surgeries. Doesnt smoke, vapes occasionally. TECHNIQUE: Imaging protocol: Radiologic exam of the chest. Views: 2 views. COMPARISON: CR XR CHEST 2V 10/31/2021 12:20 AM FINDINGS: Lungs: Unremarkable. No consolidation. Pleural spaces: Unremarkable. No pleural effusion. No pneumothorax. Heart/Mediastinum: Unremarkable. No cardiomegaly. Bones/joints: Unremarkable. IMPRESSION: No acute findings.
--- NOTE | 2022-05-11 22:04 | PC.NURSE ---
Pt gone to RAD
--- NOTE | 2022-05-11 22:07 | PC.NURSE ---
Pt back from RAD
[2022-05-11 22:08] LABS: Microscopic, Urine URINE MICROSCOPIC (MICROSCOPIC)
[2022-05-11 22:10] LABS: Basophils # 0.1 K/mm3 (0-0.2); Basophils % 1.2 % (0.1-2.0); Eosinophils # 0.3 K/mm3 (0.0-0.4); Eosinophils % 6.3 % (0.1-12.0); Hematocrit 40.2 % (42.0-52.0); Hemoglobin 13.7 g/dL (14.1-18.0); Lymphocytes # 2.1 K/mm3 (0.7-4.5); Lymphocytes % 43.9 % (10-50); Mean Corpuscular HGB Conc 34.1 g/dL (31.8-35.4); Mean Corpuscular Hemoglobin 29.5 pg (27.0-31.2); Mean Corpuscular Volume 86.5 fl (80-94); Mean Platelet Volume 7.5 fl (7.4-10.4); Monocytes # 0.4 K/mm3 (0.1-1.0); Monocytes % 7.1 % (1.7-9.3); Neutrophils % 41.5 % (37.0-80.0); Platelet Count 240 K/mm3 (142-424); Red Blood Count 4.65 M/mm3 (4.60-6.20); Red Cell Distribution Width 12.4 % (11.5-17.5); White Blood Count 4.9 K/mm3 (4.5-13.0)
[2022-05-11 22:12] LABS: Appearance,Urine CLEAR (Clear); Bilirubin,Urine Negative (Negative); Blood, Urine Negative (Negative); Color,Urine YELLOW (Yellow); Glucose,Urine (UA) Negative (Negative); Ketones,Urine Negative (Negative); Leukocyte Esterase,Urine Negative (Negative); Nitrate,Urine Negative (Negative); Protein,Urine Negative (Negative)
[2022-05-11 22:17] LABS: Alanine Aminotransferase 36 U/L (12-78); Albumin Level 4.2 g/dl (3.5-5.0); Alkaline Phosphatase 118 U/L (38-126); Anion Gap 10.7 mEq/L (5-15); Aspartate Amino Transferase 42 U/L (17-59); Bilirubin,Direct 0.2 mg/dl (0.0-0.4); Bilirubin,Indirect 1.4 mg/dL (0.0-0.9); Bilirubin,Total 1.6 mg/dl (0.2-1.3); Bilirubin,Unconjugated 1.4 mg/dL (0.0-1.1); Blood Urea Nitrogen 10 mg/dl (9-20); Calcium 8.2 mg/dl (8.4-10.2); Carbon Dioxide 27 mmol/L (22.0-30.0); Chloride 104 mmol/L (98-107); Creatine Kinase 300 U/L (55-170); Creatinine Clearance Estimated 132 mL/min (50-200); Estimated Glomerular Filt Rate 123 ml/min (>60); GFR (African American) 149 ML/MIN (>60); Glucose 101 mg/dl (74-100); Potassium 3.7 mmoL/L (3.5-5.1); Sodium 138 mmol/L (136-145); Total Protein,Serum 6.8 g/dl (6.3-8.2)
--- NOTE | 2022-05-11 22:17 | HMH.EDCP ---
Discharge Plan Disposition Patient Disposition: Home, Self-Care Chief Complaint: Chest Pain Prescriptions Prescriptions: No Action sumatriptan succinate 100 mg tablet 100 mg PO DIRECTED Label Comments: TAKE 1 TABLET BY MOUTH ONCE NEEDED FOR MIGRAINE FOR UP TO 1 DOSE. famotidine 20 mg tablet 20 mg PO BID Label Comments: TAKE 1 TABLET BY MOUTH 2 TIMES DAILY. Referrals Follow up/Referrals: Provider,Referral, [Referring] - See instructions Clinical Impressions Clinical Impression: Atypical chest pain Instructions Patient Instructions: DI for Atypical Chest Pain Discharge ED Provider: David (ED)Sergey Chest Pain HPI General Chief Complaint: Chest Pain Stated Complaint: chest pain Time Seen by Provider: 05/11/22 21:55 Mode of Arrival: Family Vehicle Source of Information: Patient, Significant Other and Medical Record Limitations: No Limitations Description of Symptoms (Recalled from ER Triage Doc. by RN): Pt c/o midsternal chest pain that radiates to left lower lung. He also c/o SOA, dry cough, and chills. He states these symptoms have been present for 2 days and are worsening. 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 History of Present Illness HPI narrative: pt with lower ant chest pain /epigastric pain w/o trauma /fever/rash or known ht dis - no recent viral dis but has had maderna booster some cough over the last 2 days - has seen gi for abn lft - reported rashida hua MD complaint: chest pain indicative of cardiac Onset (ago): day(s) Duration: intermittent Pain location: epigastric Severity: moderate Risk Factors for CAD: Family Hx of CAD and Smoking Treatments prior to or on arrival for Cardiac Chest Pain: none JOS Score for Non-Stemi Age of Patient: <30 years old Heart Rate: 70-89 bpm Systolic Blood Pressure: 100-119 mmHg Serum Creatinine: 0.80-1.19 mg/dl CHF Killip Class: I-No CHF Other Risk Factors: None Non-Stemi Risk Score: 59 Risk Stratification: 1-108 = Low Risk Related Data Home Medications Medication Instructions Recorded Confirmed famotidine 20 mg tablet 20 mg PO BID gerd 05/11/22 05/11/22 sumatriptan succinate 100 mg tablet 100 mg PO DIRECTED migraines 05/11/22 05/11/22 Allergies Allergy/AdvReac Type Severity Reaction Status Date / Time Penicillins [PENICILLINS] Allergy Unknown as a Verified 05/11/22 22:22 child trazodone AdvReac Mild sinus Verified 05/11/22 22:22 trouble PFSH [facility] Disclaimer: The information contained in this section may have been updated after the patient was seen, as this information can be updated by other users. Medical History (Updated 05/11/22 @ 23:53 by Sergey DAVIS)MD) Anxiety Depression Gilbert disease Gilbert syndrome PTSD (post-traumatic stress disorder) Surgical History (Updated 03/02/22 @ 20:52 by Balbina Duncan RN) History of dental surgery Hx of cholecystectomy Hx of thumb surgery Social History Smoking Status: Current every day smoker second hand exposure: No alcohol intake: never substance use type: denies use current occupational status: employed Travel in the last 8 weeks: None household members: family housing: house current occupational exposures/hazards: No caffeine: Yes ROS Obtained: Yes All systems reviewed & no additional complaints except as documented Physical Exam General General appearance: alert Head Head exam: normocephalic Eye Eye exam: Present PERRL and EOMI; Absent jaundice ENT ENT exam: Present mucous membranes moist Neck Neck exam: Present full ROM and trachea midline Respiratory Respiratory exam: Present normal lung sounds bilaterally; Absent respiratory distress Cardiovascular Cardiovascular exam: Present regular rate; Absent systolic murmur, rubs or gallop Abdominal Exam Abdominal exam: Present soft and tenderness; Absent guarding Abdominal tenderness: Present LUQ, epigast
[2022-05-11 22:23] LABS: C-Reactive Protein 3.7 mg/L (0-4)
[2022-05-11 22:26] LABS: Coronavirus 19, PCR Not Detected (NotDetected); Influenza A, PCR Not Detected (NotDetected); Influenza B, PCR Not Detected (NotDetected)
--- NOTE | 2022-05-11 22:28 | CT_ITS ---
PROCEDURE INFORMATION: Exam: CT Abdomen And Pelvis With Contrast Exam date and time: 05/11/2022 10:46 PM Age: 21 years old Clinical indication: Pain and abnormal findings; Abnormal lab test; Other: Elevated bilirubin; Abdominal pain; Localized; Left lower quadrant (llq); Patient HX: PT C/O llq abd pain x3 days, worsening. ; Additional info: Left abd pain, elevated bilirubin TECHNIQUE: Imaging protocol: Computed tomography of the abdomen and pelvis with contrast. Radiation optimization: All CT scans at this facility use at least one of these dose optimization techniques: automated exposure control; mA and/or kV adjustment per patient size (includes targeted exams where dose is matched to clinical indication); or iterative reconstruction. Contrast material: ISOVUE; Contrast volume: 75 ml; Contrast route: IV; REPORTING DATA: Count of CT and Cardiac NM exams in prior 12 months: This patient has received 2 known CTs and 0 known cardiac nuclear medicine studies in the 12 months prior to the current study. COMPARISON: CT ABDOMEN PELVIS W CON 08/03/2021 2:17 PM FINDINGS: Liver: Normal. No mass. Gallbladder and bile ducts: Normal. No calcified stones. No ductal dilation. Pancreas: Normal. No ductal dilation. Spleen: Normal. No splenomegaly. Adrenal glands: Normal. No mass. Kidneys and ureters: Normal. No hydronephrosis. Stomach and bowel: Unremarkable. No obstruction. No mucosal thickening. Appendix: No evidence of appendicitis. Intraperitoneal space: Unremarkable. No free air. No significant fluid collection. Vasculature: Unremarkable. No abdominal aortic aneurysm. Lymph nodes: Unremarkable. No enlarged lymph nodes. Urinary bladder: Unremarkable as visualized. Reproductive: Unremarkable as visualized. Bones/joints: Unremarkable. No acute fracture. Soft tissues: Unremarkable. IMPRESSION: No acute findings.
--- NOTE | 2022-05-11 22:29 | PC.NURSE ---
Updated pt on POC. He is now c/o left lower abd pain. Dr. Hernandez notified of current results and pt's new symptom complaints. New order for CT A/P with IV contrast.
[2022-05-11 22:31] LABS: Troponin I < 0.01 ng/ml (0.00-0.034)
[2022-05-11 22:32] LABS: Squamous Epithelial Cell,Urine Occasional #/hpf (0-5)
--- NOTE | 2022-05-11 22:41 | PC.NURSE ---
Pt gone to RAD via wheelchair
[2022-05-11 22:48] LABS: Erythrocyte Sedimentation Rate 13 mm/hr (0-15)
[2022-05-11 22:51] LABS: Amylase 44 U/L (30-110); Lipase 78 U/L (23-300)
--- NOTE | 2022-05-11 22:52 | PC.NURSE ---
Pt back from RAD
--- NOTE | 2022-05-11 23:41 | PC.NURSE ---
Dr. Hernandez at BS speaking with pt
[2022-05-11 23:45] LABS: Procalcitonin 0.049 ng/mL (0.0-2.0)
== END 2022-05-11 23:58 | disposition home or self-care (01) ==
PROVIDERS: Emergency Provider Emergency Medicine; PCP Family Medicine
DX: R07.89 Other chest pain (principal); R79.89 Other specified abnormal findings of blood chemistry; R10.13 Epigastric pain
CPT/HCPCS: 71046; 74177; 80048; 80076; 81001; 82150; 82550; 83690; 84145; 84484; 85025; 85651; 86140; 93005; 96360; 96374; 99285; C9803; Q9967; U0003; U0005

== ENCOUNTER 2022-06-28 22:57 | Emergency (ER) | payer MEDICAID, SELFPAY ==
--- NOTE | 2022-06-28 23:08 | PC.NURSE ---
awaiting call from at this time.
--- NOTE | 2022-06-28 23:08 | PC.NURSE ---
[facility] called for transfer at this time. awaiting call back.
[2022-06-28 23:10] VITALS: BP 105/68; PULSE 72; RESP 16; TEMP 36.6; O2SAT 97
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
--- NOTE | 2022-06-28 23:12 | ECG_ITS ---
APPROVED REPORT Exam: Resting ECG HR:66 bpm ECG Measurements Heart Rate 66 AXES WV 174 P 54 QRSd 93 QRS 64 QT 365 T 14 QTc 379 Conclusion SINUS RHYTHM MODERATE VOLTAGE CRITERIA FOR LVH, CONSIDER NORMAL VARIANT [MEETS CRITERIA IN ONE OF: R(aVL), S(V1), R(V5), R(V5/V6)+S(V1)] BORDERLINE ECG INTERPRETATION BASED ON A DEFAULT AGE OF 40 YEARS UNCONFIRMED REPORT Electronically signed by : Mariusz Soriano MD 06/29/2022 22:04:51
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
[2022-06-28 23:19] VITALS: BP 105/68; PULSE 72; RESP 16; TEMP 36.6; O2SAT 97; BMI 17.5
[2022-06-28 23:23] VITALS: BMI 25.8
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
--- NOTE | 2022-06-28 23:24 | PC.NURSE ---
on the phone with from [facility]
[2022-06-28 23:25] LABS: Alanine Aminotransferase 26 U/L (12-78); Albumin Level 4.4 g/dl (3.5-5.0); Albumin/Globulin Ratio 1.8 (1.1-1.8); Alkaline Phosphatase 107 U/L (38-126); Anion Gap 15.5 mEq/L (5-15); Aspartate Amino Transferase 40 U/L (17-59); Bilirubin,Total 1.7 mg/dl (0.2-1.3); Blood Urea Nitrogen 12 mg/dl (9-20); Calcium 8.7 mg/dl (8.4-10.2); Carbon Dioxide 27 mmol/L (22.0-30.0); Chloride 100 mmol/L (98-107); Creatinine Clearance Estimated 155 mL/min (50-200); Estimated Glomerular Filt Rate 122 ml/min (>60); GFR (African American) 148 ML/MIN (>60); Globulin 2.5 g/dL (1.3-3.2); Glucose 91 mg/dl (74-100); Potassium 3.5 mmoL/L (3.5-5.1); Sodium 139 mmol/L (136-145); Total Protein,Serum 6.9 g/dl (6.3-8.2)
[2022-06-28 23:26] LABS: Ethyl Alcohol < 10 mg/dl (0-10)
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
[2022-06-28 23:28] LABS: Activated Partial Thrombo Time 25.9 seconds (22.8-30.6); INR 0.98 (0.9-1.1); Prothrombin Time 10.6 seconds (10.1-12.5)
--- NOTE | 2022-06-28 23:30 | PC.NURSE ---
Pt accepted by at . Kristina Dave attempting to contact [facility] at this time.
--- NOTE | 2022-06-28 23:32 | PC.NURSE ---
call placed to [facility]. spoke with rohan, noted we are waiting a call back re: [facility] 11
[2022-06-28 23:33] VITALS: BP 133/87; PULSE 74; RESP 20; O2SAT 99
--- NOTE | 2022-06-28 23:47 | PC.NURSE ---
[facility] min [facility]
--- NOTE | 2022-06-28 23:48 | PC.NURSE ---
received call from alicja with [facility] in [facility]. was advised 16 min eta. 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
--- NOTE | 2022-06-28 23:58 | PC.NURSE ---
Report called to MARLENE Flynn at ED at this time
[2022-06-29] VITALS: BP 117/72; PULSE 79; RESP 13; O2SAT 96
[2022-06-29 00:04] VITALS: BP 117/72; PULSE 66; RESP 16; TEMP 36.6; O2SAT 97
--- NOTE | 2022-06-29 00:09 | PC.NURSE ---
[facility] arrives at bedside
--- NOTE | 2022-06-29 00:18 | PC.NURSE ---
all belongings sent with patient
== END 2022-06-29 00:18 | disposition other institution (70) ==
PROVIDERS: Emergency Provider Emergency Medicine
DX: S09.8XXA Other specified injuries of head, initial encounter (principal); S29.9XXA Unspecified injury of thorax, initial encounter; S14.109A Unspecified injury at unspecified level of cervical spinal cord, initial encounter; V47.5XXA Car driver injured in collision with fixed or stationary object in traffic accident, initial encounter; F17.200 Nicotine dependence, unspecified, uncomplicated
CPT/HCPCS: 71045; 72020; 72170; 80053; 85610; 85730; 93005; 96360; 99291

== ENCOUNTER 2022-08-03 18:50 | Emergency (ER) | payer MEDICAID, SELFPAY ==
[2022-08-03 18:51] VITALS: BP 126/78; PULSE 82; RESP 16; TEMP 36.6; O2SAT 97; BMI 18.8
--- NOTE | 2022-08-03 19:01 | XR_ITS ---
PROCEDURE INFORMATION: Exam: XR Left Tibia and Fibula Exam date and time: 08/03/2022 7:03 PM Age: 22 years old Clinical indication: Injury or trauma; Fall; Work related; Blunt trauma; Patient HX: Patient fell 8 feet off a porch he was working on. Left lower leg pain. TECHNIQUE: Imaging protocol: Radiologic exam of the left tibia and fibula. Views: 2 views. COMPARISON: CR FTL3 FOOT-LT-3 VIEWS 11/24/2016 00:32 FINDINGS: Bones/joints: No acute fracture or dislocation. Soft tissues: Normal. IMPRESSION: No acute fracture or dislocation.
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
--- NOTE | 2022-08-03 19:01 | EXP.UTC ---
Discharge Plan Disposition Patient Disposition: Home, Self-Care Condition: Good Prescriptions Prescriptions: New ibuprofen [ibuprofen] 600 mg tablet 600 mg PO Q6HP PRN (Reason: Mild Pain) Qty: 30 0RF No Action sumatriptan succinate 100 mg tablet 100 mg PO DIRECTED Label Comments: TAKE 1 TABLET BY MOUTH ONCE NEEDED FOR MIGRAINE FOR UP TO 1 DOSE. famotidine 20 mg tablet 20 mg PO BID Label Comments: TAKE 1 TABLET BY MOUTH 2 TIMES DAILY. Referrals Follow up/Referrals: Tyrell Sargent DO [Staff Physician] - See instructions Grant Mcdaniel [Primary Care Provider] - See instructions Activity Restrictions/Add. Instructions Additional Instructions/Restrictions: Rest the extremity, apply ice for 15 minutes as tolerated three or four times per day, Elevate the extremity as tolerated while you are resting. Take ibuprofen for pain. I sent in a prescription to your pharmacy. Follow up with Dr. Sargent (orthopedics).I put in a referral but you need to call his office and schedule an appointment. Follow up with your regular doctor. GO TO THE ER FOR ANY WORSENING SYMPTOMS Clinical Impressions Clinical Impression: Left knee sprain, Contusion of knee, left Stand Alone Forms Stand Alone Forms: Work/School Release Instructions Patient Instructions: How to Use Crutches, Knee Sprain, DI for Knee Sprain, How to Use a Knee Immobilizer Discharge ED Provider: Jhony Otto [facility] General Stated complaint: AO 08/03 left Knee pain Time Seen by Provider: 08/03/22 19:01 History of Present Illness Provider Complaint: He states that he was working on a porch today when he fell thru it. He came down on his left knee when this happened. He has had left knee pain since then. Related Data Home Medications Medication Instructions Recorded Confirmed famotidine 20 mg tablet 20 mg PO BID gerd 05/11/22 05/11/22 sumatriptan succinate 100 mg tablet 100 mg PO DIRECTED migraines 05/11/22 05/11/22 Previous Rx's Medication Instructions Recorded ibuprofen 600 mg tablet 600 mg PO Q6HP PRN Mild Pain #30 08/03/22 tabs Allergies Allergy/AdvReac Type Severity Reaction Status Date / Time Penicillins [PENICILLINS] Allergy Unknown as a Verified 05/11/22 22:22 child trazodone AdvReac Mild sinus Verified 05/11/22 22:22 trouble PFSH [facility] Disclaimer: The information contained in this section may have been updated after the patient was seen, as this information can be updated by other users. Medical History Anxiety Depression Gilbert disease Gilbert syndrome PTSD (post-traumatic stress disorder) Surgical History History of dental surgery Hx of cholecystectomy Hx of thumb surgery Social History Smoking Status: Current every day smoker second hand exposure: No alcohol intake: never substance use type: denies use current occupational status: employed Travel in the last 8 weeks: None household members: family housing: house current occupational exposures/hazards: No caffeine: Yes ROS Obtained: Yes All systems reviewed & no additional complaints except as documented Constitutional Constitutional: Denies chills and Denies fever(s) Eyes Eyes: Denies eye discharge ENT Ears, Nose, Mouth, and Throat: Denies dizziness, Denies otalgia and Denies sore throat Cardiovascular Cardiovascular: Denies chest pain Respiratory Respiratory: Denies shortness of breath, Denies chest congestion, Denies cough, Denies stridor and Denies wheezing Gastrointestinal Gastrointestingal: Denies nausea or vomiting Musculoskeletal Musculoskeletal: Reports as per HPI Integumentary/Breasts Skin/Breast: Denies rash and Denies wounds Neurologic Neurologic: Denies dizziness and Denies paresthesias Allergic/Immunologic Aller
[2022-08-03 20:12] VITALS: BP 126/78; PULSE 82; RESP 16; TEMP 36.6; O2SAT 97
== END 2022-08-03 20:14 | disposition home or self-care (01) ==
PROVIDERS: Emergency Provider Nurse Practitioner Family; PCP Family Medicine
DX: S83.92XA Sprain of unspecified site of left knee, initial encounter (principal); S80.02XA Contusion of left knee, initial encounter; F17.210 Nicotine dependence, cigarettes, uncomplicated; E80.4 Gilbert syndrome; F41.9 Anxiety disorder, unspecified; F32.A Depression, unspecified; W17.89XA Other fall from one level to another, initial encounter
CPT/HCPCS: 73562; 73590; 99212; 99214; G0463

== ENCOUNTER 2022-08-06 12:09 | Outpatient (RCR) | payer MEDICAID, SELFPAY | END 2022-08-06 13:00 | disposition home or self-care (01) | LOC: PT 12:09 | PROVIDERS: Visit Provider Orthopaedic Surgery | DX: M25.562 Pain in left knee (principal); S80.02XA Contusion of left knee, initial encounter; M23.92 Unspecified internal derangement of left knee | CPT/HCPCS: 97760 ==

== ENCOUNTER 2022-08-20 23:22 | Emergency (ER) | payer MEDICAID, SELFPAY ==
[2022-08-20 23:31] VITALS: BP 137/88; PULSE 65; RESP 16; TEMP 36.7; O2SAT 98; BMI 19.9
--- NOTE | 2022-08-20 23:51 | XR_ITS ---
PROCEDURE INFORMATION: Exam: XR Right Ankle Exam date and time: 08/20/2022 11:56 PM Age: 22 years old Clinical indication: Pain; Ankle; Right; Additional info: Tenderness medial/lateral foot/ankle/calcaneous TECHNIQUE: Imaging protocol: Radiologic exam of the right ankle. Views: 3 or more views. COMPARISON: No relevant prior studies available. FINDINGS: Bones/joints: Normal. Soft tissues: Normal. IMPRESSION: No acute findings.
--- NOTE | 2022-08-20 23:51 | XR_ITS ---
PROCEDURE INFORMATION: Exam: XR Right Calcaneus Exam date and time: 08/20/2022 11:58 PM Age: 22 years old Clinical indication: Pain; Heel; Right; Additional info: Tenderness medial/lateral foot/ankle/calcaneous TECHNIQUE: Imaging protocol: Radiologic exam of the right calcaneus. Views: 2 or more views. COMPARISON: CR Ankle R 08/20/2022 11:56 PM FINDINGS: Bones/joints: Normal. Soft tissues: Normal. IMPRESSION: No acute findings.
--- NOTE | 2022-08-20 23:51 | XR_ITS ---
PROCEDURE INFORMATION: Exam: XR Right Foot Exam date and time: 08/20/2022 11:59 PM Age: 22 years old Clinical indication: Pain; Foot; Right; Additional info: Tenderness medial/lateral foot/ankle/calcaneous TECHNIQUE: Imaging protocol: Radiologic exam of the right foot. Views: 3 or more views. COMPARISON: CR XR CALCANEUS RT MIN 2V 08/20/2022 11:58 PM FINDINGS: Bones/joints: Normal. Soft tissues: Normal. IMPRESSION: No acute findings.
--- NOTE | 2022-08-20 23:53 | HMH.EDGENADL ---
Discharge Plan Disposition Patient Disposition: Home, Self-Care Condition: Fair Chief Complaint: PAIN Prescriptions Prescriptions: No Action sumatriptan succinate 100 mg tablet 100 mg PO DIRECTED Patient Comments: TAKE 1 TABLET BY MOUTH ONCE NEEDED FOR MIGRAINE FOR UP TO 1 DOSE. famotidine 20 mg tablet 20 mg PO BID Patient Comments: TAKE 1 TABLET BY MOUTH 2 TIMES DAILY. ibuprofen [ibuprofen] 600 mg tablet 600 mg PO Q6HP PRN (Reason: Mild Pain) Qty: 30 0RF Referrals Follow up/Referrals: Grant Mcdaniel [Primary Care Provider] - See instructions Activity Restrictions/Add. Instructions Additional Instructions/Restrictions: At this time it was felt you are safe to be discharged home. If new or worsening symptoms please do not hesitate to return the emergency department. Please bear weight as tolerated on the right ankle. Please follow-up with your orthopedist for continued evaluation in addition to your left knee Clinical Impressions Clinical Impression: Ankle sprain Discharge ED Provider: Aamir Prasad General Adult HPI General Chief complaint: PAIN Stated complaint: AO 08/17/22 injury right heel Time Seen by Provider: 08/20/22 23:44 Mode of Arrival: Family Vehicle Source of Information: Patient Limitations: No Limitations Description of Symptoms (Recalled from ER Triage Doc. by RN): 22 yo male with right heel pain from hobbling around on his right leg to avoid use of crutches from a previous injury to the left leg. Pain 8/10. Describes as throbbing and incr with use. NO direct injury other than repetitive movement. History of Present Illness HPI narrative: Patient is a 22-year-old male with past medical history of Xavier Bears syndrome, recent traumatic left knee injury on crutches pending ligamentous investigation who presents emergency department for evaluation of right ankle and right heel pain. History is obtained by patient at bedside. Patient fell approximately 6 feet injuring his left knee a few weeks ago and has resultantly been on crutches since then. Patient self discontinued crutches and began hopping for approximately 3 days, 1 instance of which she has slipped down 3 stairs. Patient has had progressive pain about his calcaneus and medial ankle with hopping causing him to have limited ability to bear weight. Due to progressive symptoms he presents here for continued evaluation. Symptoms are refractory to [id number]-[id number] ibuprofen. Patient denies other traumatic injuries at this time. Related Data Home Medications Medication Instructions Recorded Confirmed famotidine 20 mg tablet 20 mg PO BID gerd 05/11/22 08/06/22 sumatriptan succinate 100 mg tablet 100 mg PO DIRECTED migraines 05/11/22 08/06/22 Previous Rx's Medication Instructions Recorded ibuprofen 600 mg tablet 600 mg PO Q6HP PRN Mild Pain #30 08/03/22 tabs Allergies Allergy/AdvReac Type Severity Reaction Status Date / Time Penicillins [PENICILLINS] Allergy Unknown as a Verified 08/06/22 11:43 child trazodone AdvReac Mild sinus Verified 08/06/22 11:43 trouble PFSH PFSH Disclaimer: The information contained in this section may have been updated after the patient was seen, as this information can be updated by other users. Medical History Anxiety Depression Gilbert disease Gilbert syndrome PTSD (post-traumatic stress disorder) Surgical History History of dental surgery all teeth surgically removed Hx of cholecystectomy Hx of thumb surgery Social History Smoking Status: Former smoker second hand exposure: No alcohol intake: never substance use type: denies use current occupational status: employed Travel in the last 8 weeks: None household members: family housing: house current
[2022-08-21 01:30] VITALS: BP 138/84; PULSE 70; RESP 16; TEMP 36.8; O2SAT 98
== END 2022-08-21 01:31 | disposition home or self-care (01) ==
PROVIDERS: Emergency Provider Emergency Medicine; PCP Family Medicine
DX: S93.401A Sprain of unspecified ligament of right ankle, initial encounter (principal); E80.4 Gilbert syndrome; F41.9 Anxiety disorder, unspecified; F32.A Depression, unspecified; W10.8XXA Fall (on) (from) other stairs and steps, initial encounter
CPT/HCPCS: 73610; 73630; 73650; 99283; 99284

== ENCOUNTER 2022-10-06 17:24 | Emergency (ER) | payer MEDICAID, SELFPAY ==
[2022-10-06 17:25] VITALS: BP 117/83; PULSE 87; RESP 16; TEMP 37.2; O2SAT 99; BMI 16.7
--- NOTE | 2022-10-06 17:42 | EXP.UTC ---
Discharge Plan Disposition Patient Disposition: Home, Self-Care Condition: Good Prescriptions Prescriptions: New ondansetron 4 mg Tablet,Disintegrating 4 mg PO Q8H PRN (Reason: Nausea) Qty: 12 0RF No Action sumatriptan succinate 100 mg tablet 100 mg PO DIRECTED Patient Comments: TAKE 1 TABLET BY MOUTH ONCE NEEDED FOR MIGRAINE FOR UP TO 1 DOSE. famotidine 20 mg tablet 20 mg PO BID Patient Comments: TAKE 1 TABLET BY MOUTH 2 TIMES DAILY. ibuprofen [ibuprofen] 600 mg tablet 600 mg PO Q6HP PRN (Reason: Mild Pain) Qty: 30 0RF Referrals Follow up/Referrals: Grant Mcdaniel [Primary Care Provider] - See instructions Activity Restrictions/Add. Instructions Additional Instructions/Restrictions: Drink plenty of fluids. Take tylenol or ibuprofen for pain or fever. Take the medications as directed. Follow up with your regular doctor. GO TO THE ER FOR ANY WORSENING SYMPTOMS Clinical Impressions Clinical Impression: Acute viral syndrome Instructions Patient Instructions: DI for Viral Syndrome Discharge ED Provider: Jhony Otto [facility] General Stated complaint: fever,weak, Time Seen by Provider: 10/06/22 17:42 History of Present Illness Provider Complaint: He states that for the past 4 days he has not felt good. He has had fever, weakness, poor appetite and n/v. He states that he has not been eating or drinking even before he started to feel bad because he is having worsening anxiety and depression. He has an appointment with his provider for those issues coming up in 2 days. He denies any si or hi. Related Data Home Medications Medication Instructions Recorded Confirmed famotidine 20 mg tablet 20 mg PO BID gerd 05/11/22 08/06/22 sumatriptan succinate 100 mg tablet 100 mg PO DIRECTED migraines 05/11/22 08/06/22 Previous Rx's Medication Instructions Recorded ibuprofen 600 mg tablet 600 mg PO Q6HP PRN Mild Pain #30 08/03/22 tabs ondansetron 4 mg disintegrating 4 mg PO Q8H PRN Nausea #12 tabs 10/06/22 tablet Allergies Allergy/AdvReac Type Severity Reaction Status Date / Time Penicillins [PENICILLINS] Allergy Unknown as a Verified 08/06/22 11:43 child trazodone AdvReac Mild sinus Verified 08/06/22 11:43 trouble [facility] Disclaimer: The information contained in this section may have been updated after the patient was seen, as this information can be updated by other users. Medical History Anxiety Depression Gilbert disease Gilbert syndrome PTSD (post-traumatic stress disorder) Surgical History History of dental surgery all teeth surgically removed Hx of cholecystectomy Hx of thumb surgery Social History Smoking Status: Former smoker second hand exposure: No alcohol intake: never substance use type: denies use current occupational status: employed Travel in the last 8 weeks: None household members: family housing: house current occupational exposures/hazards: No caffeine: Yes ROS Obtained: Yes All systems reviewed & no additional complaints except as documented Constitutional Constitutional: Denies chills and Denies fever(s) Eyes Eyes: Denies eye discharge ENT Ears, Nose, Mouth, and Throat: Denies dizziness, Denies otalgia and Denies sore throat Cardiovascular Cardiovascular: Denies chest pain Respiratory Respiratory: Denies shortness of breath, Denies chest congestion, Denies cough, Denies stridor and Denies wheezing Gastrointestinal Gastrointestingal: Denies nausea or vomiting Musculoskeletal Musculoskeletal: Reports system reviewed and no additional complaints, except as documented and Denies arthralgias Integumentary/Breasts Skin/Breast: Denies rash Neurologic Neurologic: Denies dizziness and Denies paresthesias All
[2022-10-06 18:55] LABS: Basophils % 0.3 % (0.1-2.0); Eosinophils # 0.2 K/mm3 (0.0-0.4); Eosinophils % 3.5 % (0.1-12.0); Hematocrit 46.5 % (42.0-52.0); Hemoglobin 15.4 g/dL (14.1-18.0); Lymphocytes # 1.1 K/mm3 (0.7-4.5); Lymphocytes % 18.9 % (10-50); Mean Corpuscular HGB Conc 33.1 g/dL (31.8-35.4); Mean Corpuscular Hemoglobin 29.2 pg (27.0-31.2); Mean Corpuscular Volume 88.2 fl (80-94); Mean Platelet Volume 7.1 fl (7.4-10.4); Monocytes # 0.5 K/mm3 (0.1-1.0); Monocytes % 8.9 % (1.7-9.3); Neutrophils % 68.4 % (37.0-80.0); Platelet Count 212 K/mm3 (142-424); Red Blood Count 5.27 M/mm3 (4.60-6.20); Red Cell Distribution Width 12.4 % (11.5-17.5); White Blood Count 5.9 K/mm3 (4.8-10.8)
[2022-10-06 19:00] LABS: Chloride 103 mmol/L (98-107)
[2022-10-06 19:01] LABS: Potassium 4.1 mmoL/L (3.5-5.1); Sodium 139 mmol/L (136-145)
[2022-10-06 19:03] LABS: Blood Urea Nitrogen 8 mg/dl (9-20); Creatinine Clearance Estimated 112 mL/min (50-200); Estimated Glomerular Filt Rate 122 ml/min (>60); GFR (African American) 148 ML/MIN (>60)
[2022-10-06 19:04] LABS: Anion Gap 13.1 mEq/L (5-15); Calcium 9.7 mg/dl (8.4-10.2); Carbon Dioxide 27 mmol/L (22.0-30.0); Glucose 93 mg/dl (74-100)
[2022-10-06 19:22] VITALS: BP 117/83; PULSE 87; RESP 16; TEMP 37.2; O2SAT 99
== END 2022-10-06 19:23 | disposition home or self-care (01) ==
PROVIDERS: Emergency Provider Nurse Practitioner Family; PCP Family Medicine
DX: R50.9 Fever, unspecified (principal); R11.2 Nausea with vomiting, unspecified; R53.1 Weakness; F41.1 Generalized anxiety disorder; F33.9 Major depressive disorder, recurrent, unspecified; E80.4 Gilbert syndrome; Z87.891 Personal history of nicotine dependence; B34.9 Viral infection, unspecified
CPT/HCPCS: 80048; 85025; 96360; 99212; 99214; G0463

== ENCOUNTER → 2022-11-10 12:56 | Outpatient (CLI) | payer MEDICAID, SELFPAY ==
[2022-11-15 00:08] LABS: I001-IgE Honey Bee 0.79 kU/L (Class II); I002-IgE Hornet, White Face 0.37 kU/L (Class I); I005-IgE Hornet Yellow 0.12 kU/L (Class 0/I)
== END ==
PROVIDERS: Allergy & Immunology Allergy; PCP Family Medicine; Visit Provider Physician Assistant
DX: Z91.038 Other insect allergy status (principal)
CPT/HCPCS: 36415; 86003

== ENCOUNTER 2023-01-25 17:16 | Emergency (ER) | payer MEDICAID, SELFPAY ==
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
[2023-01-25 17:40] VITALS: BP 121/86; PULSE 84; RESP 18; TEMP 36.8; O2SAT 98; BMI 20.5
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
[2023-01-25 18:08] VITALS: BP 121/86; PULSE 84; RESP 17; TEMP 36.8; O2SAT 98
== END 2023-01-25 18:08 | disposition home or self-care (01) ==
PROVIDERS: Emergency Provider Nurse Practitioner; PCP Family Medicine
DX: M25.562 Pain in left knee (principal); S80.12XA Contusion of left lower leg, initial encounter; W31.1XXA Contact with metalworking machines, initial encounter; Z87.891 Personal history of nicotine dependence
CPT/HCPCS: 73562; 99212; 99214; G0463

== ENCOUNTER 2023-02-06 13:42 | Emergency (ER) | payer MEDICAID, SELFPAY ==
[2023-02-06 14:30] VITALS: BP 117/73; PULSE 79; RESP 20; TEMP 37.3; O2SAT 97; BMI 20.9
--- NOTE | 2023-02-06 14:35 | EXP.UTC ---
Discharge Plan Disposition Patient Disposition: Home, Self-Care Condition: Good Prescriptions Prescriptions: New azithromycin [Zithromax] 250 mg tablet 250 mg PO UD DOSE PK Qty: 6 0RF Rx Instructions: Take two (2) tablets today, then one (1) tablet days #2 thru #5 [id number]-[id number]-IK [Bromfed DM] 2-30-10 mg/5 mL Syrup 5 ml PO Q6H PRN (Reason: Cough) Qty: 240 0RF methylprednisolone 4 mg Tablets,Dose Pack 4 mg PO DIRECTED Qty: 21 0RF ondansetron 4 mg Tablet,Disintegrating 4 mg PO Q8H PRN (Reason: Nausea) Qty: 12 0RF Referrals Follow up/Referrals: Grant Mcdaniel [Primary Care Provider] - See instructions Activity Restrictions/Add. Instructions Additional Instructions/Restrictions: Drink plenty of fluids. Take tylenol or ibuprofen for pain or fever. Take the medications as directed. Follow up with your regular doctor. GO TO THE ER FOR ANY WORSENING SYMPTOMS Clinical Impressions Clinical Impression: Acute viral syndrome, Acute bronchitis Instructions Patient Instructions: DI for Acute Bronchitis Discharge ED Provider: Jhony Otto [facility] General Stated complaint: lung pain, cough, sore throat Time Seen by Provider: 02/06/23 14:35 History of Present Illness Provider Complaint: He states that for the past 3 days he has had chest congestion, productive cough, body aches, fever, and malaise. Related Data Previous Rx's Medication Instructions Recorded azithromycin 250 mg tablet 250 mg PO UD DOSE PK #6 tabs 02/06/23 (Zithromax) iqjrdhbergnfwkb-smakkyoxmkwiwtj-AL 5 ml PO Q6H PRN Cough #240 mL 02/06/23 2 mg-30 mg-10 mg/5 mL oral syrup (Bromfed DM) methylprednisolone 4 mg tablets in 4 mg PO DIRECTED #21 tabs 02/06/23 a dose pack ondansetron 4 mg disintegrating 4 mg PO Q8H PRN Nausea #12 tabs 02/06/23 tablet Allergies Allergy/AdvReac Type Severity Reaction Status Date / Time Penicillins [PENICILLINS] Allergy Unknown as a Verified 01/25/23 17:54 child trazodone AdvReac Mild sinus Verified 12/05/23 17:54 trouble PFSH PFSH Disclaimer: The information contained in this section may have been updated after the patient was seen, as this information can be updated by other users. Medical History Anxiety Depression Gilbert disease Gilbert syndrome PTSD (post-traumatic stress disorder) Surgical History History of dental surgery all teeth surgically removed Hx of cholecystectomy Hx of thumb surgery Social History Smoking Status: Former smoker second hand exposure: No alcohol intake: never substance use type: denies use current occupational status: employed Travel in the last 8 weeks: None household members: family housing: house current occupational exposures/hazards: No caffeine: Yes ROS Obtained: Yes All systems reviewed & no additional complaints except as documented Constitutional Constitutional: Reports poor appetite Eyes Eyes: Reports system reviewed and no additional complaints, except as documented ENT Ears, Nose, Mouth, and Throat: Reports as per HPI Cardiovascular Cardiovascular: Reports system reviewed and no additional complaints, except as documented and Denies chest pain Respiratory Respiratory: Denies shortness of breath, Reports chest congestion, Reports cough, Denies stridor and Denies wheezing Gastrointestinal Gastrointestingal: Reports system reviewed and no additional complaints, except as documented; Denies abdominal pain, diarrhea or vomiting Musculoskeletal Musculoskeletal: Reports system reviewed and no additional complaints, except as documented and Denies arthralgias Integumentary/Breasts Skin/Breast: Reports system reviewed and no additional complaints, except as documented and Denies rash Neurologic Neurologic: D
[2023-02-06 14:59] LABS: UTC Strep Screen (Rapid) Negative (Negative)
[2023-02-06 15:00] LABS: UTC Influenza A Antigen Negative (Negative); UTC Influenza B Antigen Negative (Negative)
[2023-02-06 15:01] VITALS: BP 117/73; PULSE 79; RESP 20; TEMP 37.3; O2SAT 97
== END 2023-02-06 15:04 | disposition home or self-care (01) ==
PROVIDERS: Emergency Provider Nurse Practitioner Family; PCP Family Medicine
DX: J20.9 Acute bronchitis, unspecified (principal); R07.1 Chest pain on breathing; R05.8 Other specified cough; R50.9 Fever, unspecified; R07.0 Pain in throat; R09.89 Other specified symptoms and signs involving the circulatory and respiratory systems; M79.18 Myalgia, other site; R53.81 Other malaise
CPT/HCPCS: 87635; 87804; 87880; 99212; 99214; G0463

== ENCOUNTER 2023-02-08 21:59 | Emergency (ER) | payer SELFPAY ==
[2023-02-08 21:56] VITALS: BP 132/70; PULSE 83; RESP 18; TEMP 36.6; O2SAT 98
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
--- NOTE | 2023-02-08 22:12 | PC.NURSE ---
accepted by [facility] by
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
[2023-02-08 22:18] LABS: Basophils % 0.3 % (0.1-2.0); Chloride 99 mmol/L (98-107); Eosinophils # 0.2 K/mm3 (0.0-0.4); Eosinophils % 1.5 % (0.1-12.0); Hematocrit 43.2 % (42.0-52.0); Hemoglobin 15.3 g/dL (14.1-18.0); Mean Corpuscular HGB Conc 35.5 g/dL (31.8-35.4); Mean Corpuscular Hemoglobin 30.7 pg (27.0-31.2); Mean Corpuscular Volume 86.6 fl (80-94); Mean Platelet Volume 6.4 fl (7.4-10.4); Monocytes # 0.6 K/mm3 (0.1-1.0); Neutrophils # 9.4 K/mm3 (1.8-7.8); Neutrophils % 77.3 % (37.0-80.0); Platelet Count 264 K/mm3 (142-424); Red Blood Count 4.99 M/mm3 (4.60-6.20); Red Cell Distribution Width 12.6 % (11.5-17.5); White Blood Count 12.2 K/mm3 (4.8-10.8)
[2023-02-08 22:19] LABS: Potassium 3.7 mmoL/L (3.5-5.1); Sodium 135 mmol/L (136-145)
[2023-02-08 22:21] LABS: Alanine Aminotransferase 41 U/L (12-78); Alkaline Phosphatase 118 U/L (38-126); Anion Gap 9.7 mEq/L (5-15); Aspartate Amino Transferase 69 U/L (17-59); Bilirubin,Total 1.3 mg/dl (0.2-1.3); Blood Urea Nitrogen 13 mg/dl (9-20); Carbon Dioxide 30 mmol/L (22.0-30.0); Estimated Glomerular Filt Rate 94 ml/min (>60); GFR (African American) 114 ML/MIN (>60); Lipase 96 U/L (23-300)
[2023-02-08 22:22] LABS: Albumin Level 4.8 g/dl (3.5-5.0); Albumin/Globulin Ratio 1.6 (1.1-1.8); Calcium 8.7 mg/dl (8.4-10.2); Glucose 122 mg/dl (74-100); Total Protein,Serum 7.8 g/dl (6.3-8.2)
[2023-02-08 22:24] LABS: POC Glucose,Bedside 125 (70-110)
[2023-02-08 22:24] LABS: Activated Partial Thrombo Time 27.9 seconds (22.8-30.6); INR 1.01 (0.9-1.1); Prothrombin Time 10.9 seconds (10.1-12.5)
--- NOTE | 2023-02-08 22:24 | PC.NURSE ---
[employer] called and stated the flight crew is 11 mins out. RN and advised. CR
[2023-02-08 22:26] LABS: Lactic Acid 1.5 mmol/L (0.7-2.1)
[2023-02-08 22:29] LABS: Ethyl Alcohol < 10 mg/dl (0-10)
--- NOTE | 2023-02-08 22:35 | PC.NURSE ---
Called report to Rina Perez RN @ [facility]
--- NOTE | 2023-02-08 22:38 | PC.NURSE ---
Helicopter here for transfer
--- NOTE | 2023-02-08 22:39 | PC.NURSE ---
[facility] has arrived and in ED
--- NOTE | 2023-02-08 22:45 | PC.NURSE ---
Gave report to Rico ROSARIO from [employer] [facility].
[2023-02-08 22:48] VITALS: BP 115/81; PULSE 77; RESP 17; TEMP 36.6; O2SAT 97
== END 2023-02-08 22:54 | disposition short-term general hospital (02) ==
PROVIDERS: Emergency Provider Emergency Medicine; PCP Family Medicine
DX: M54.2 Cervicalgia (principal); R10.30 Lower abdominal pain, unspecified; S70.211A Abrasion, right hip, initial encounter; E80.4 Gilbert syndrome; Z87.891 Personal history of nicotine dependence; V47.6XXA Car passenger injured in collision with fixed or stationary object in traffic accident, initial encounter
CPT/HCPCS: 71045; 72170; 80053; 82962; 83605; 83690; 85025; 85610; 85730; 90471; 90715; 96361; 96374; 96375; 99285; J2405

== ENCOUNTER 2023-03-25 13:57 | Emergency (ER) | payer SELFPAY ==
[2023-03-25 13:57] VITALS: BP 136/88; PULSE 109; RESP 19; TEMP 37; O2SAT 98; BMI 22.1
--- NOTE | 2023-03-25 13:59 | XR_ITS ---
FINAL REPORT CLINICAL HISTORY: lac from chainsaw, eval for bony inj/foreign body COMPARISON: None FINDINGS: LEFT ANKLE: Three views show no evidence of acute displaced fracture or dislocation of the visualized bony architecture. The joint spaces appear normal. No evidence of a radiopaque foreign body is identified. IMPRESSION: Unremarkable exam. Reviewed, Interpreted and Dictated by Sachin Brown MD Transcribed by Ligia Bush Authenticated and [facility]
[2023-03-25 14:00] VITALS: BP 128/92; PULSE 117; O2SAT 97
[2023-03-25] MEDS: ACETAMINOPHEN 500MG TAB 1000 MG PO (14:12)
[2023-03-25] MEDS: ONDANSETRON 4MG ODT 4 MG SL (14:12)
[2023-03-25] MEDS: OXYCODONE 5MG IMMEDIATE RELEASE TABLET 5 MG PO (14:12)
[2023-03-25] MEDS: TET/DIPHTH/PERT-ADULT 0.5ML SYRINGE 0.5 ML IM (14:13)
--- NOTE | 2023-03-25 14:21 | PC.NURSE ---
RAD at [facility]
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
[2023-03-25 14:30] VITALS: BP 126/75; PULSE 94; O2SAT 99
[2023-03-25 15:00] VITALS: BP 129/87; PULSE 113; O2SAT 98
[2023-03-25 15:19] VITALS: BP 129/87; PULSE 102; RESP 19; TEMP 36.7; O2SAT 98
== END 2023-03-25 15:19 | disposition home or self-care (01) ==
PROVIDERS: Emergency Provider Emergency Medicine; PCP Family Medicine
DX: S91.012A Laceration without foreign body, left ankle, initial encounter (principal); E80.4 Gilbert syndrome; F17.200 Nicotine dependence, unspecified, uncomplicated; W29.8XXA Contact with other powered hand tools and household machinery, initial encounter
CPT/HCPCS: 12002; 73610; 90471; 90715; 99283

== ENCOUNTER 2023-05-19 19:00 | Emergency (ER) | payer MEDICAID, SELFPAY ==
[2023-05-19 19:25] VITALS: BP 117/79; PULSE 95; RESP 21; TEMP 36.8; O2SAT 99; BMI 21.7
--- NOTE | 2023-05-19 19:32 | ED_ITS ---
Discharge Plan Disposition Patient Disposition: Home, Self-Care Condition: Good Referrals Follow up/Referrals: Grant Mcdaniel [Primary Care Provider] - See instructions Activity Restrictions/Add. Instructions Additional Instructions/Restrictions: Take tylenol or ibuprofen for pain or fever. Use the erythromycin eye ointment that we gave you as directed. Apply 1/2 inch to inside the lower eye lid four times per day for the next 7 days. Make sure you use this as directed. Follow up with your regular doctor. If you have continued or worsening symptoms you should either return here to the ER for follow up with an eye doctor. GO TO THE ER FOR ANY WORSENING SYMPTOMS Clinical Impressions Clinical Impression: Left cornea abrasion Instructions Patient Instructions: DI for Corneal Abrasion, Erythromycin Ophthalmic Discharge ED Provider: Jhony Otto [facility] General Stated complaint: LT eye irritation Time Seen by Provider: 05/19/23 19:32 History of Present Illness Provider Complaint: He states that he was cutting some brush yesterday when a wood chip went into his left eye. He got the wood chip out pretty quickly, but ever since then he has had left eye irritation and redness. He denies any vision changes, but he does have photophobia and excessive tearing in that eye. His tetanus immunization is up to date. Related Data Allergies Allergy/AdvReac Type Severity Reaction Status Date / Time Penicillins [PENICILLINS] Allergy Unknown as a Verified 01/25/23 17:54 child trazodone AdvReac Mild sinus Verified 01/25/23 17:54 trouble [facility] Disclaimer: The information contained in this section may have been updated after the patient was seen, as this information can be updated by other users. Medical History Anxiety Depression Gilbert disease Gilbert syndrome PTSD (post-traumatic stress disorder) Surgical History History of dental surgery Hx of cholecystectomy Hx of thumb surgery Social History Smoking Status: Current every day smoker second hand exposure: No alcohol intake: never substance use type: denies use current occupational status: employed Travel in the last 8 weeks: None household members: family housing: house current occupational exposures/hazards: No caffeine: Yes ROS Obtained: Yes All systems reviewed & no additional complaints except as documented Constitutional Constitutional: Denies chills and Denies fever(s) Eyes Eyes: Reports as per HPI, Denies change in vision, Reports eye discharge and Reports photophobia ENT Ears, Nose, Mouth, and Throat: Denies dizziness, Denies otalgia and Denies sore throat Cardiovascular Cardiovascular: Denies chest pain Respiratory Respiratory: Denies shortness of breath, Denies chest congestion, Denies cough, Denies stridor and Denies wheezing Gastrointestinal Gastrointestingal: Denies nausea or vomiting Musculoskeletal Musculoskeletal: Reports system reviewed and no additional complaints, except as documented and Denies arthralgias Integumentary/Breasts Skin/Breast: Denies rash Neurologic Neurologic: Denies dizziness and Denies paresthesias Allergic/Immunologic Allergic/Immunologic: Denies wheezing Physical Exam General General appearance: alert and in no apparent distress Head Head exam: atraumatic, normocephalic and normal inspection Eye Eye exam: Present PERRL and EOMI Expanded Eye Exam Eyelids: left: erythema and right: normal inspection Pupils: Left: size (2), Right: size (2) and Bilateral: regular, round and reactive Sclera/Conjunctival: left: injection and exudate and right: normal inspection ENT ENT exam: Present normal exam, normal oropharynx, mucous membranes moist, TM's normal bilaterally and normal external ear exam Neck Neck exam: Present normal inspection, full ROM and trachea midline; Absent meningismus or lymphadenopathy Chest Chest inspection: Present normal inspection and symmetric chest wall rise; Absent tenderness Respiratory Respiratory exam: Present normal lung sounds bilaterally; Absent respiratory distress Cardiovascular Cardiovascular exam: Present regular rate and normal rhythm; Absent JVD Abdominal Exam Abdominal exam: Present soft and normal bowel sounds; Absent distention, tenderness or guarding Extremities Exam Extremities exam: Present normal inspection, full ROM and normal capillary refill; Absent calf tenderness Back Exam Back exam: Present normal inspection; Absent tenderness Neurological Exam Neurological exam: Present alert and oriented X3 Psychiatric Psychiatric exam: Present normal affect and normal mood Skin Skin exam: Present warm, dry, intact and normal color Lymphatic Lymphatic Findings: no adenopathy Medical Decision Making Medical Records Medical records reviewed: No I reviewed the patient's medical records. Jimmy Inquiry Pt receiving controlled substance: No Procedures Risk/Benefits of Procedure(s) Were Explained: Yes Eye Exam/FB Removal Location: eye (L) Topical anesthetic used: tetracaine Fluorescein Stick(s) used: Yes Time Out performed: Yes Procedure performed under: direct visualization with magnification Foreign body: other (no foreign body noted) Evidence of corneal penetration: No Technique: irrigation Post-procedure medication: ophthalmic antibiotic Eye irrigated w/saline (#ccs): 25 Patient tolerated procedure: well and no complications Complications: other (He tolerated this well, no foreign body noted in eye but a small corneal abrasion at the 6:00 position was noted. )
[2023-05-19] MEDS: EYE WASH IRRIGATION SOLN 118ML BOTTLE 120 ML OP (20:15)
[2023-05-19] MEDS: ERYTHROMYCIN BASE 1 GM OINT...G. OP (20:15)
[2023-05-19] MEDS: TETRACAINE 0.5% OPTH SOL 15ML OP (20:15)
[2023-05-19] MEDS: FLUORESCEIN SODIUM 1MG STRIP 1 MG OP (20:15)
[2023-05-19 20:17] VITALS: BP 117/79; PULSE 95; RESP 21; TEMP 36.8; O2SAT 99
== END 2023-05-19 20:21 | disposition home or self-care (01) ==
PROVIDERS: Emergency Provider Nurse Practitioner Family; PCP Family Medicine
DX: S05.02XA Injury of conjunctiva and corneal abrasion without foreign body, left eye, initial encounter (principal); F17.210 Nicotine dependence, cigarettes, uncomplicated; W60.XXXA Contact with nonvenomous plant thorns and spines and sharp leaves, initial encounter
CPT/HCPCS: 99212; 99214; G0463

== ENCOUNTER 2023-07-25 16:09 | Emergency (ER) | payer MEDICAID, SELFPAY ==
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
[2023-07-25 16:19] VITALS: BP 124/85; PULSE 102; RESP 18; O2SAT 97; BMI 20.6
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
[2023-07-25] MEDS: KETOROLAC 10MG TABLET 10 MG PO (16:36)
[2023-07-25] MEDS: ACETAMINOPHEN 500MG TAB 1000 MG PO (16:36)
[2023-07-25 17:18] VITALS: BP 128/77; PULSE 86; RESP 13; TEMP 36.7
== END 2023-07-25 17:18 | disposition home or self-care (01) ==
LOC: UTC 16:13 → ER 16:15
PROVIDERS: Emergency Provider Emergency Medicine; PCP Family Medicine
DX: M79.631 Pain in right forearm (principal); S50.11XA Contusion of right forearm, initial encounter; W22.8XXA Striking against or struck by other objects, initial encounter
CPT/HCPCS: 73070; 73090; 99283

== ENCOUNTER 2023-09-27 23:44 | Emergency (ER) | payer MEDICAID, SELFPAY ==
[2023-09-27 23:45] VITALS: BP 137/93; PULSE 97; RESP 18; TEMP 36.6; O2SAT 96; BMI 21.5
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
[2023-09-28] MEDS: ACETAMINOPHEN 500MG TAB 1000 MG PO (00:08)
[2023-09-28] MEDS: METHOCARBAMOL 500MG TABLET 500 MG PO (00:08)
[2023-09-28] MEDS: KETOROLAC 30MG/ML VIAL 30 MG IM (00:09)
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
[2023-09-28 01:00] VITALS: BP 109/72; PULSE 93; O2SAT 96
[2023-09-28 01:12] VITALS: BP 109/72; PULSE 79; RESP 16; TEMP 36.6; O2SAT 97
== END 2023-09-28 01:17 | disposition home or self-care (01) ==
PROVIDERS: Emergency Provider Emergency Medicine; PCP Family Medicine
DX: M54.2 Cervicalgia (principal); F17.210 Nicotine dependence, cigarettes, uncomplicated; Z87.81 Personal history of (healed) traumatic fracture
CPT/HCPCS: 72125; 96372; 99284; J1885

== ENCOUNTER 2023-12-30 18:03 | Emergency (ER) | payer MEDICAID, SELFPAY ==
[2023-12-30 18:50] VITALS: BP 113/68; PULSE 74; RESP 20; TEMP 37.2; O2SAT 98; BMI 24.2
[2023-12-30 18:57] LABS: UTC Strep Screen (Rapid) Negative (Negative)
[2023-12-30 18:58] LABS: UTC Influenza A Antigen Negative (Negative); UTC Influenza B Antigen Negative (Negative)
--- NOTE | 2023-12-30 19:02 | ED_ITS ---
Discharge Plan Disposition Patient Disposition: Home, Self-Care Condition: Good Prescriptions Prescriptions: No Action sertraline 100 mg tablet 100 mg PO DAILY Patient Comments: TAKE 1.5 TABLETS BY MOUTH DAILY. quetiapine 200 mg tablet 200 mg PO DAILY omeprazole 40 mg capsule,delayed release(DR/EC) 40 mg PO DAILY Referrals Follow up/Referrals: Grant Mcdaniel [Primary Care Provider] - See instructions Activity Restrictions/Add. Instructions Additional Instructions/Restrictions: *Monitor Temp, Over the counter Motrin or Tylenol as directed/as needed Tylenol every 4 hours and Motrin every 6 hours (as long as your family doctor has told you that you can take it) for fever or pain. and straight to ER if unable to lower temp less than 101.0 after medication given *Warm salt water gargles may help to soothe the throat *Throat Lozenges? *Warm fluids like tea with honey may help to soothe the throat? *Sleep elevated *Humidifier/Vaporizer Your throat swab was sent for culture. Those results are typically sent to your primary care. Be sure to follow up in 2-3 days with your family doctor/primary care physician if no improvement so they can review those result and treat if necessary. If you don?t have a primary care doctor, I recommend you get one but in the mean time, you will have to return to a walk in clinic Follow up IMMEDIATELY for new or worsening symptoms or no Noticeable improvement over the next 48-72 hours. 911 for difficulty breathing or swallowing You were tested for today for Upper Respiratory Panel with COVID19 your test result should be back in the next 24hours, you may check your results on the [facility] Clinical Impressions Clinical Impression: Viral upper respiratory infection Instructions Patient Instructions: DI for Viral Upper Respiratory Infection -- Adult Print Language Print Language: Puerto Rican Discharge ED Provider: Bettie Urrutia [facility] [place] HPI General Stated complaint: Fever,vomiting,body aches Mode of Arrival: Ambulatory Source of Information: Patient Limitations: No Limitations Time Seen by Provider: 12/30/23 19:02 Description of Symptoms (Recalled from Triage Doc. by RN): PATIENT C/O COUGH, FEVER, COLD SWEATS, MUSCLE ACHES, VOMITING, SORE THROAT AND RUNNY NOSE SINCE YESTERDAY HEENT Symptoms (Recalled from RN notes): Yes Resp Symptoms (Recalled from RN notes): Yes Skin Symptoms (Recalled from RN notes): No MS Symptoms (Recalled from RN notes): No Functional Status (Recalled from RN notes): WNL History of Present Illness Provider Complaint: Patient states that he started feeling bad yesterday States that he has been having bodyaches, chills, headache, N/V and sore throat States he has been around his little cousins that is sick and not sure what with States he wants tested for flu strep and the viruses that is going around Related Data Home Medications ?Medication ?Instructions ?Recorded ?Confirmed omeprazole 40 mg capsule,delayed 40 mg PO DAILY 12/30/23 12/30/23 release quetiapine 200 mg tablet 200 mg PO DAILY 12/30/23 12/30/23 sertraline 100 mg tablet 100 mg PO DAILY 12/30/23 12/30/23 Allergies Allergy/AdvReac Type Severity Reaction Status Date / Time Penicillins [PENICILLINS] Allergy Unknown as a Verified 01/25/23 17:54 child trazodone AdvReac Mild sinus Verified 01/25/23 17:54 trouble Worker's Comp Is this a Worker's Comp case?: No [facility] Disclaimer: The information contained in this section may have been updated after the patient was seen, as this information can be updated by other users. Medical History Anxiety Depression Gilbert disease Gilbert syndrome PTSD (post-traumatic stress disorder) Surgical History History of dental surgery Hx of cholecystectomy Hx of thumb surgery Social History Smoking Status: Current every day smoker second hand exposure: No alcohol intake: never substance use type: denies use current occupational status: employed Travel in the last 8 weeks: None household members: family housing: house current occupational exposures/hazards: No caffeine: Yes ROS Obtained: Yes All systems reviewed & no additional complaints except as documented and Yes Systems reviewed as appropriate & no additional complaints except as documented Constitutional Constitutional: Reports system reviewed and no additional complaints, except as documented, Reports as per HPI, Reports body ache, Reports chills and Reports fever(s) ENT Ears, Nose, Mouth, and Throat: Reports system reviewed and no additional complaints, except as documented, Reports as per HPI, Reports nasal congestion, Reports nasal discharge and Reports sore throat Cardiovascular Cardiovascular: Reports system reviewed and no additional complaints, except as documented and Reports as per HPI Respiratory Respiratory: Reports system reviewed and no additional complaints, except as documented, Reports as per HPI and Reports cough Gastrointestinal Gastrointestingal: Reports system reviewed and no additional complaints, except as documented, as per HPI, nausea and vomiting Physical Exam General General appearance: alert and in no apparent distress ENT ENT exam: Present mucous membranes moist Expanded ENT Exam Nose exam: Present other (clear drianage); Absent sinus tenderness Throat exam: Present tonsillar erythema; Absent tonsillomegaly or tonsillar exudate Respiratory Respiratory exam: Present normal lung sounds bilaterally; Absent respiratory distress or wheezes Cardiovascular Cardiovascular exam: Present regular rate, normal rhythm and normal heart sounds Neurological Exam Neurological exam: Present alert, oriented X3 and normal gait Medical Decision Making Medical Records Screening: Per USPSTF and CDC recommendations, given the prevalence of disease in our region, it is our hospital?s policy to screen for HIV and viral Hepatitis for all patients aged 18 and over and those with ongoing risk factors. Jimmy Inquiry Pt receiving controlled substance: No Jimmy was queried for this patient: No Vital Signs: 12/30/23 18:50 Temperature 98.9 F Temperature Source Oral Pulse Rate [Left Brachial] 74 Respiratory Rate 20 Blood Pressure [Left Arm] 113/68 Blood Pressure Mean [Left Arm] 83 Blood Pressure Source [Left Arm] Automatic Cuff Blood Pressure Position [Left Arm] Sitting 02 Sat by Pulse Oximetry 98 Oxygen Delivery Method Room Air Lab Data Lab results reviewed: Yes I reviewed the patient's lab results. Lab Results 12/30/23 18:49: Influenza Type A Ag Negative, Influenza Type B Ag Negative, Strep Scn Rapid Clinic Negative Orders (Tests/Meds): ORDERS Category Date Time Status Strep Screen Confirmation Stat Micro 12/30/23 18:49 Received
[2023-12-30 19:12] VITALS: BP 113/68; PULSE 74; RESP 20; TEMP 37.2; O2SAT 98
[2023-12-30 19:19] LABS: Adenovirus,PCR Not Detected (NotDetected); Bordetella Pertussis Not Detected (NotDetected); Chlamydophila Pneumoniae, PCR Not Detected (NotDetected); Coronavirus 19, PCR Not Detected (NotDetected); Coronavirus 229E Not Detected (NotDetected); Coronavirus NL63 Not Detected (NotDetected); Coronavirus OC43 Not Detected (NotDetected); Coronovirus HKU1,PCR Not Detected (NotDetected); Human Metapneumovirus Not Detected (NotDetected); Influenza A, PCR Not Detected (NotDetected); Influenza AH1, 2009 Not Detected (NotDetected); Influenza AH1, PCR Not Detected (NotDetected); Influenza AH3,PCR Not Detected (NotDetected); Influenza B, PCR Not Detected (NotDetected); Mycoplasma Pneumoniae, PCR Not Detected (NotDetected); Parainfluenza 1, PCR Not Detected (NotDetected); Parainfluenza 2, PCR Not Detected (NotDetected); Parainfluenza 3, PCR Not Detected (NotDetected); Parainfluenza 4, PCR Not Detected (NotDetected); Respiratory Syncytial Virus Not Detected (NotDetected); Rhinovirus/Enterovirus Not Detected (NotDetected)
== END 2023-12-30 19:15 | disposition home or self-care (01) ==
PROVIDERS: Emergency Provider Nurse Practitioner; PCP Family Medicine
DX: J06.9 Acute upper respiratory infection, unspecified (principal)
CPT/HCPCS: 87265; 87486; 87581; 87632; 87635; 87804; 87880; 99213; G0381

== ENCOUNTER 2024-01-15 19:04 | Emergency (ER) | payer MEDICAID, SELFPAY ==
--- NOTE | 2024-01-15 19:07 | XR_ITS ---
PROCEDURE INFORMATION: Exam: XR Right Ankle Exam date and time: 01/15/2024 7:01 PM Age: 23 years old Clinical indication: Pain; Ankle; Right; Additional info: Pain and swelling TECHNIQUE: Imaging protocol: Radiologic exam of the right ankle. Views: 3 or more views. COMPARISON: CR XR ANKLE RT MIN 3V 08/20/2022 11:56 PM FINDINGS: Bones/joints: Osseous alignment is normal. No acute fracture. No significant arthritic change. Soft tissues: Normal. IMPRESSION: Negative right ankle
[2024-01-15 19:20] VITALS: BP 146/96; PULSE 101; RESP 19; TEMP 36.9; O2SAT 99; BMI 22.1
--- NOTE | 2024-01-15 19:38 | EXP.UTC ---
Discharge Plan Disposition Patient Disposition: Home, Self-Care Prescriptions Prescriptions: No Action gabapentin 600 mg tablet 600 mg PO DAILY Patient Comments: TAKE 1 TABLET BY MOUTH 3 TIMES DAILY. sertraline 100 mg tablet 150 mg PO DAILY Patient Comments: TAKE 1.5 TABLETS BY MOUTH DAILY. quetiapine 200 mg tablet 200 mg PO HS Patient Comments: TAKE 1 TABLET BY MOUTH NIGHTLY. omeprazole 40 mg capsule,delayed release(DR/EC) 40 mg PO DAILY Patient Comments: TAKE 1 CAPSULE BY MOUTH DAILY. diclofenac sodium 75 mg tablet,delayed release (DR/EC) 75 mg PO BID Patient Comments: TAKE 1 TABLET BY MOUTH 2 TIMES DAILY WITH MEALS NEEDED. buspirone 15 mg tablet 30 mg PO HS Patient Comments: TAKE 2 TABLETS BY MOUTH NIGHTLY. Referrals Follow up/Referrals: Provider,Referral, MD [Primary Care Provider] - See instructions Activity Restrictions/Add. Instructions Additional Instructions/Restrictions: *weight bearing as tolerated *RICE, Rest the extremity, Ice 15-20 minutes 3-4 times daily, Compress- wear the ramone wrap as discussed as much as possible to help reduce swelling and pain, Elevate the extremity when at rest *Ramone wrap is for support and help control swelling, use it except in the shower. Be sure that is not to tight but not to loose either *Elevate when resting? *Take the Diclofenac you was prescribed for pain as you was prescribed do not take ibuprofen or any other NSAID with this medication Immediately follow up with your family doctor for new or worsening of symptoms, or no noticeable improvement over the next 3-5 days Clinical Impressions Clinical Impression: Pain in ankle Instructions Patient Instructions: How To Perform RICE (Rest, Ice, Compress, Elevate), Diclofenac Print Language Print Language: Tuvaluan Discharge ED Provider: Bettie Urrutia [facility] General Stated complaint: right ankle painful,swollen,burning Mode of Arrival: Ambulatory Source of Information: Patient Limitations: No Limitations Time Seen by Provider: 01/15/24 19:38 Description of Symptoms (Recalled from Triage Doc. by RN): PATIENT C/O RIGHT ANKLE PAIN AND SWELLING X 4 DAYS HEENT Symptoms (Recalled from RN notes): No Resp Symptoms (Recalled from RN notes): No Skin Symptoms (Recalled from RN notes): No MS Symptoms (Recalled from RN notes): Yes Functional Status (Recalled from RN notes): WNL History of Present Illness Provider Complaint: Patient states that he has been having pain in his left knee and burning in his right ankle for a couple weeks was out of town visiting his girl friend when his left knee give out on him and he seen Orthopedics there and they put him in a knee immobilizer and crutches States that he has been having a burning sensation in the right ankle and thinks it may be swollen for the last 4 days so tonight when it was still bothering him he came in States he has appointment with Ortho but it still a few weeks out Denies known injury Related Data Home Medications ?Medication ?Instructions ?Recorded ?Confirmed buspirone 15 mg tablet 30 mg PO HS 01/15/24 01/15/24 diclofenac sodium 75 mg 75 mg PO BID 01/15/24 01/15/24 tablet,delayed release gabapentin 600 mg tablet 600 mg PO DAILY 01/15/24 01/15/24 omeprazole 40 mg capsule,delayed 40 mg PO DAILY 01/15/24 01/15/24 release quetiapine 200 mg tablet 200 mg PO HS 01/15/24 01/15/24 sertraline 100 mg tablet 150 mg PO DAILY 01/15/24 01/15/24 Allergies Allergy/AdvReac Type Severity Reaction Status Date / Time Penicillins (PENICILLINS) Allergy Unknown as a Verified 01/25/23 17:54 child trazodone AdvReac Mild sinus Verified 01/25/23 17:54 trouble Worker's Comp Is this a Worker's Comp case?: No [facility] Disclaimer: The information contained in this section may have been updated after the patient was seen, as this information can be updated by other users. Medical History Anxiety Depression Gilbert disease Gilbert syndrome PTSD (post-traumatic stress disorder) Surgical History History of dental surgery Hx of cholecystectomy Hx of thumb surgery Social History Smoking Status: Current every day smoker second hand exposure: No alcohol intake: never substance use type: denies use current occupational status: employed household members: family housing: house current occupational exposures/hazards: No caffeine: Yes ROS Obtained: Yes All systems reviewed & no additional complaints except as documented and Yes Systems reviewed as appropriate & no additional complaints except as documented Constitutional Constitutional: Reports system reviewed and no additional complaints, except as documented and Reports as per HPI ENT Ears, Nose, Mouth, and Throat: Reports system reviewed and no additional complaints, except as documented and Reports as per HPI Cardiovascular Cardiovascular: Reports system reviewed and no additional complaints, except as documented and Reports as per HPI Respiratory Respiratory: Reports system reviewed and no additional complaints, except as documented and Reports as per HPI Gastrointestinal Gastrointestingal: Reports system reviewed and no additional complaints, except as documented and as per HPI Musculoskeletal Musculoskeletal: Reports system reviewed and no additional complaints, except as documented, Reports as per HPI and Reports other Comments: Pain/burning in right ankle, denies known injury x 2 weeks Physical Exam General General appearance: alert and in no apparent distress Respiratory Respiratory exam: Present normal lung sounds bilaterally; Absent respiratory distress or wheezes Cardiovascular Cardiovascular exam: Present regular rate, normal rhythm and normal heart sounds Abdominal Exam Abdominal exam: Present soft and normal bowel sounds; Absent distention or tenderness Expanded Lower Extremity Exam Right: Ankle exam: Present tenderness; Absent swelling, abrasion, laceration, ecchymosis, deformity or erythema Ankle image: 1. reports burning/stinging sensation when he puts all his weigh on it + Pedal pulses noted, no discoloration, no swelling noted Neurological Exam Neurological exam: Present alert, oriented X3 and normal gait Medical Decision Making Medical Records Screening: Per USPSTF and CDC recommendations, given the prevalence of disease in our region, it is our hospital?s policy to screen for HIV and viral Hepatitis for all patients aged 18 and over and those with ongoing risk factors. Jimmy Inquiry Pt receiving controlled substance: No Jimmy was queried for this patient: No Vital Signs: 01/15/24 19:20 Temperature 98.4 F Temperature Source Oral Pulse Rate [Left Brachial] 101 H Respiratory Rate 19 Blood Pressure [Left Arm] 146/96 H Blood Pressure Mean [Left Arm] 112 Blood Pressure Source [Left Arm] Automatic Cuff Blood Pressure Position [Left Arm] Sitting 02 Sat by Pulse Oximetry 99 Oxygen Delivery Method Room Air Orders (Tests/Meds): ORDERS Category Date Time Status XR ankle RT min 3V Stat Exams 01/15/24 19:07 Taken Radiology Data #1: Image(s): Ankle Image Reviewed: Yes I have reviewed radiologist's interpretation IMPRESSION: Negative right ankle Medical Decision Narrative: Patient states that he was prescribed Diclofenac and has been taking Ibuprofen also Patient educated not to take Ibuprofen while taking diclofenac these are both NSAIDs and should not be taken together
[2024-01-15 20:12] VITALS: BP 146/96; PULSE 101; RESP 19; TEMP 36.9; O2SAT 99
== END 2024-01-15 20:14 | disposition home or self-care (01) ==
PROVIDERS: Emergency Provider Nurse Practitioner
DX: M25.571 Pain in right ankle and joints of right foot (principal)
CPT/HCPCS: 73610; 99213; G0381

== ENCOUNTER 2024-04-28 17:02 | Emergency (ER) | payer MEDICAID, SELFPAY ==
[2024-04-28] VITALS (7 sets, daily range): BP systolic 116–155; BP diastolic 80–105; PULSE 72–84; RESP 16–20; TEMP 36.6–36.9; O2SAT 97–100; BMI 23.6
--- NOTE | 2024-04-28 17:22 | CT_ITS ---
PROCEDURE INFORMATION: Exam: CT Abdomen And Pelvis With Contrast Exam date and time: 04/28/2024 6:12 PM Age: 23 years old Clinical indication: Abdominal pain; Additional info: Rlq/flank abd pain TECHNIQUE: Imaging protocol: Computed tomography of the abdomen and pelvis with contrast. Radiation optimization: All CT scans at this facility use at least one of these dose optimization techniques: automated exposure control; mA and/or kV adjustment per patient size (includes targeted exams where dose is matched to clinical indication); or iterative reconstruction. Contrast material: ISOVUE; Contrast volume: 75 ml; Contrast route: IV; COMPARISON: CT ABDOMEN PELVIS W CON 05/11/2022 10:46 PM FINDINGS: Liver: Normal. No mass. Gallbladder and biliary ducts: Not visualized. Pancreas: Normal. No ductal dilation. Spleen: Normal. No splenomegaly. Adrenal glands: Normal. No mass. Kidneys and ureters: Nephroureterolithiasis or hydroureter. Stomach and bowel: Unremarkable. No obstruction. No mucosal thickening. Appendix: No evidence for appendicitis Intraperitoneal space: Unremarkable. No free air. No significant fluid collection. Vasculature: Unremarkable. No abdominal aortic aneurysm. Lymph nodes: Shotty retroperitoneal/lymph nodes without lymphadenopathy. Urinary bladder: Unremarkable as visualized. Reproductive: Unremarkable as visualized. Bones/joints: Unremarkable. No acute fracture. Soft tissues: Unremarkable. IMPRESSION: Probable mesenteric lymphadenitis
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
[2024-04-28 17:31] LABS: Microscopic, Urine URINE MICROSCOPIC (MICROSCOPIC)
[2024-04-28 17:32] LABS: Appearance,Urine CLEAR (Clear); Bilirubin,Urine Negative (Negative); Blood, Urine Negative (Negative); Color,Urine YELLOW (Yellow); Glucose,Urine (UA) Negative (Negative); Ketones,Urine Negative (Negative); Leukocyte Esterase,Urine Negative (Negative); Nitrate,Urine Negative (Negative); Protein,Urine Negative (Negative)
[2024-04-28] MEDS: LACTATED RINGERS 1000ML 1,000 ML 999 ML IV (17:33)
[2024-04-28] MEDS: ONDANSETRON 4MG/2ML VIAL 4 MG IV (17:33)
[2024-04-28] MEDS: HYDROMORPHONE 2MG/ML SYRINGE 0.5 MG IV ×2 (17:33→19:02)
[2024-04-28 17:34] LABS: Basophils % 0.6 % (0.1-2.0); Eosinophils # 0.2 K/mm3 (0.0-0.4); Hematocrit 40.4 % (42.0-52.0); Hemoglobin 14.4 g/dL (14.1-18.0); Lymphocytes # 1.8 K/mm3 (0.7-4.5); Lymphocytes % 36.5 % (10-50); Mean Corpuscular HGB Conc 35.6 g/dL (31.8-35.4); Mean Corpuscular Hemoglobin 29.9 pg (27.0-31.2); Mean Platelet Volume 9.1 fl (7.4-10.4); Monocytes # 0.4 K/mm3 (0.1-1.0); Monocytes % 8.1 % (1.7-9.3); Neutrophils # 2.5 K/mm3 (1.8-7.8); Neutrophils % 50.4 % (37.0-80.0); Platelet Count 258 K/mm3 (142-424); Red Blood Count 4.81 M/mm3 (4.60-6.20); Red Cell Distribution Width 11.7 % (11.5-17.5)
[2024-04-28 17:39] LABS: Albumin Level 4.9 g/dl (3.5-5.0); Chloride 106 mmol/L (98-107); Potassium 3.9 mmoL/L (3.5-5.1); Sodium 140 mmol/L (136-145)
[2024-04-28 17:42] LABS: Alanine Aminotransferase 28 U/L (12-78); Alkaline Phosphatase 114 U/L (38-126); Anion Gap 8.9 mEq/L (5-15); Aspartate Amino Transferase 38 U/L (17-59); Bilirubin,Total 1.1 mg/dl (0.2-1.3); Blood Urea Nitrogen 11 mg/dl (9-20); Carbon Dioxide 29 mmol/L (22.0-30.0); Creatinine Clearance Estimated 112 mL/min (50-200); Estimated Glomerular Filt Rate 84 ml/min (>60); GFR (African American) 101 ML/MIN (>60); Globulin 2.4 g/dL (1.3-3.2); Lipase 48 U/L (23-300); Total Protein,Serum 7.3 g/dl (6.3-8.2)
[2024-04-28 17:43] LABS: Calcium 9.1 mg/dl (8.4-10.2); Glucose 93 mg/dl (74-100)
--- NOTE | 2024-04-28 18:06 | PC.NURSE ---
pt to ct scan via wheelchair
[2024-04-28] MEDS: SODIUM CHLORIDE 0.9% 10ML SYR (RAD ONLY) 10 ML IV (18:15)
[2024-04-28] MEDS: IOPAMIDOL-370 (76%);100ML BOTTLE 75 ML IV (18:15)
--- NOTE | 2024-04-28 18:33 | PC.NURSE ---
GENERAL SURGEON PAGED
--- NOTE | 2024-04-28 18:35 | PC.NURSE ---
DR JAMISON SPEAKING WITH DR ZARATE
--- NOTE | 2024-04-28 18:36 | PC.NURSE ---
EMT/PARAMEDIC NOTIFIED OF DR GOMEZ REQUEST TO CALL IN SURGERY CREW DR JAMISON AT BEDSIDE TO UPDATE PT AND FAMILY
[2024-04-28] MEDS: KETOROLAC 30MG/ML VIAL 15 MG IV (20:18)
[2024-04-28] MEDS: OXYCODONE 5MG IMMEDIATE RELEASE TABLET 5 MG PO (20:51)
== END 2024-04-28 20:53 | disposition home or self-care (01) ==
LOC: ER 18:44 → SDC 20:07 → ER 20:09
PROVIDERS: Emergency Provider Student in an Organized Health Care Education/Training Program; PCP Family Medicine
DX: K35.30 Acute appendicitis with localized peritonitis, without perforation or gangrene (principal); R10.31 Right lower quadrant pain; R11.10 Vomiting, unspecified; M25.551 Pain in right hip; Z72.0 Tobacco use
CPT/HCPCS: 74177; 80053; 81001; 83690; 85025; 96361; 96374; 96375; 96376; 99285; J1171; J1885; J2405; J7120; Q9967

== ENCOUNTER 2024-04-29 15:49 | Emergency (ER) | payer MEDICAID, SELFPAY ==
[2024-04-29] VITALS (11 sets, daily range): BP systolic 106–137; BP diastolic 62–91; PULSE 70–94; RESP 18; TEMP 36.8–37.7; O2SAT 93–100; BMI 23.6
[2024-04-29 16:46] LABS: Basophils % 0.7 % (0.1-2.0); Eosinophils # 0.2 K/mm3 (0.0-0.4); Eosinophils % 3.9 % (0.1-12.0); Hematocrit 39.9 % (42.0-52.0); Hemoglobin 14.1 g/dL (14.1-18.0); Lymphocytes # 1.5 K/mm3 (0.7-4.5); Lymphocytes % 33.4 % (10-50); Mean Corpuscular HGB Conc 35.3 g/dL (31.8-35.4); Mean Corpuscular Volume 84.9 fl (80-94); Monocytes # 0.4 K/mm3 (0.1-1.0); Monocytes % 9.4 % (1.7-9.3); Neutrophils # 2.3 K/mm3 (1.8-7.8); Neutrophils % 52.4 % (37.0-80.0); Platelet Count 210 K/mm3 (142-424); Red Cell Distribution Width 11.8 % (11.5-17.5); White Blood Count 4.3 K/mm3 (4.8-10.8)
[2024-04-29] MEDS: ONDANSETRON 4MG/2ML VIAL 4 MG IV (16:49)
[2024-04-29 16:53] LABS: Alanine Aminotransferase 29 U/L (12-78); Albumin Level 4.5 g/dl (3.5-5.0); Alkaline Phosphatase 93 U/L (38-126); Anion Gap 10.8 mEq/L (5-15); Aspartate Amino Transferase 40 U/L (17-59); Bilirubin,Total 1.1 mg/dl (0.2-1.3); Blood Urea Nitrogen 14 mg/dl (9-20); Carbon Dioxide 26 mmol/L (22.0-30.0); Chloride 106 mmol/L (98-107); Creatinine Clearance Estimated 136 mL/min (50-200); Estimated Glomerular Filt Rate 106 ml/min (>60); GFR (African American) 128 ML/MIN (>60); Globulin 2.2 g/dL (1.3-3.2); Glucose 87 mg/dl (74-100); Lipase 57 U/L (23-300); Potassium 3.8 mmoL/L (3.5-5.1); Sodium 139 mmol/L (136-145); Total Protein,Serum 6.7 g/dl (6.3-8.2)
[2024-04-29 16:58] LABS: Lactic Acid 0.9 mmol/L (0.7-2.1)
--- NOTE | 2024-04-29 18:21 | CT_ITS ---
PROCEDURE INFORMATION: Exam: CT Abdomen And Pelvis With Contrast Exam date and time: 04/29/2024 5:33 PM Age: 23 years old Clinical indication: Abdominal pain; Additional info: Rlq tenderness TECHNIQUE: Imaging protocol: Computed tomography of the abdomen and pelvis with contrast. Radiation optimization: All CT scans at this facility use at least one of these dose optimization techniques: automated exposure control; mA and/or kV adjustment per patient size (includes targeted exams where dose is matched to clinical indication); or iterative reconstruction. Contrast material: ISOVUE; Contrast volume: 75 ml; Contrast route: IV; COMPARISON: CT ABDOMEN PELVIS W CON 04/28/2024 6:12 PM FINDINGS: Liver: Normal. No mass. Gallbladder and biliary ducts: Normal. No calcified stones. No ductal dilation. Pancreas: Normal. No ductal dilation. Spleen: Normal. No splenomegaly. Adrenal glands: Normal. No mass. Kidneys and ureters: Normal. No hydronephrosis. Stomach and bowel: Unremarkable. No obstruction. No mucosal thickening. Appendix: No evidence of appendicitis. Intraperitoneal space: Unremarkable. No free air. No significant fluid collection. Vasculature: Unremarkable. No abdominal aortic aneurysm. Lymph nodes: Unremarkable. No enlarged lymph nodes. Urinary bladder: Unremarkable as visualized. Reproductive: Unremarkable as visualized. Bones/joints: Unremarkable. No acute fracture. Soft tissues: Unremarkable. IMPRESSION: No acute findings.
--- NOTE | 2024-04-29 18:29 | PC.NURSE ---
PT TO CT
[2024-04-29] MEDS: IOPAMIDOL-370 (76%);100ML BOTTLE 75 ML IV (18:33)
[2024-04-29] MEDS: SODIUM CHLORIDE 0.9% 10ML SYR (RAD ONLY) 10 ML IV (18:33)
[2024-04-29] MEDS: MORPHINE 4MG/ML SYRINGE 4 MG IV (18:34)
--- NOTE | 2024-04-29 18:49 | PC.NURSE ---
pt back from ct. Family presented back to room
--- NOTE | 2024-04-29 19:04 | PC.NURSE ---
Pt called out for nurse d/t severe abd pain. He is in the position in the bed and grimacing in pain. States I need help it is stabbing really bad . JORGE LUIS Chase notified of this.
[2024-04-29] MEDS: HYDROMORPHONE 2MG/ML SYRINGE 0.5 MG IV (19:08)
--- NOTE | 2024-04-29 19:34 | ECG_ITS ---
APPROVED REPORT Exam: Resting ECG HR:69 bpm ECG Measurements Heart Rate 69 AXES SD 187 P 57 QRSd 100 QRS 56 QT 377 T 47 QTc 396 Conclusion SINUS RHYTHM Electronically signed by : DAVON HINTON, 04/29/2024 23:39:10
[2024-04-29] MEDS: droPERidol 5MG/2ML VIAL 2.5 MG IV (19:50)
--- NOTE | 2024-04-29 22:38 | ED_ITS ---
Discharge Plan Disposition Patient Disposition: Home, Self-Care Condition: Good Prescriptions Prescriptions: New ondansetron 4 mg tablet,disintegrating 4 mg PO Q8H PRN (Reason: nausea and vomiting) 3 Days Qty: 10 0RF No Action gabapentin 600 mg tablet 600 mg PO DAILY Patient Comments: TAKE 1 TABLET BY MOUTH 3 TIMES DAILY. sertraline 100 mg tablet 150 mg PO DAILY Patient Comments: TAKE 1.5 TABLETS BY MOUTH DAILY. quetiapine 200 mg tablet 200 mg PO HS Patient Comments: TAKE 1 TABLET BY MOUTH NIGHTLY. omeprazole 40 mg capsule,delayed release(DR/EC) 40 mg PO DAILY Patient Comments: TAKE 1 CAPSULE BY MOUTH DAILY. diclofenac sodium 75 mg tablet,delayed release (DR/EC) 75 mg PO BID Patient Comments: TAKE 1 TABLET BY MOUTH 2 TIMES DAILY WITH MEALS NEEDED. buspirone 15 mg tablet 30 mg PO HS Patient Comments: TAKE 2 TABLETS BY MOUTH NIGHTLY. ketorolac 10 mg tablet 10 mg PO Q8H 3 Days Qty: 9 0RF Referrals Follow up/Referrals: Grant Mcdaniel [Primary Care Provider] - See instructions Activity Restrictions/Add. Instructions Additional Instructions/Restrictions: You were seen for abdominal pain. Please follow up with your PCP for recheck this week. Return to the ER if you have any worsening pain. Clinical Impressions Clinical Impression: Abdominal pain Instructions Patient Instructions: DI for Acute Abdominal Pain Print Language Print Language: German Discharge ED Provider: Archie Warner Adult HPI <YUE Grullon - Last Filed: 04/29/24 22:46> General Chief complaint: Abdominal Pain Stated complaint: Recheck labs Time Seen by Provider: 04/29/24 16:06 Mode of Arrival: Ambulatory Source of Information: Patient Description of Symptoms (Recalled from ER Triage Doc. by RN): Patient presents ambualtory to triage. States he was seen yesterday. Originally he was told that he had appendicitis. States he was then told he had a torsion of his gut fat. States he was told by the doctor to return today for lab work. Patient states his pain is worse at the moment. Endorses nausea and vomiting. Reports a fever of 100.1 at home. History of Present Illness HPI narrative: Patient presents with right lower quadrant abdominal pain. He was in the emergency department last night with a CT read of mesenteric adenitis. He was evaluated by general surgery who agreed with this finding. Advised to return to the ER today for repeat abdominal exam. He reports that he has had a temperature of 100.0 and vomiting. Denies any urinary symptoms. Denies any diarrhea or constipation. MD complaint: abdominal pain Onset (ago): day(s) Location: abdomen Radiation: non-radiation Severity: moderate Consistency: constant Relieving factors: none Exacerbating factors: movement Associated symptoms: fever/chills and nausea/vomiting Treatments prior to arrival: none Related Data Home Medications ?Medication ?Instructions ?Recorded ?Confirmed buspirone 15 mg tablet 30 mg PO HS 01/15/24 04/29/24 diclofenac sodium 75 mg 75 mg PO BID 01/15/24 04/29/24 tablet,delayed release gabapentin 600 mg tablet 600 mg PO DAILY 01/15/24 04/29/24 omeprazole 40 mg capsule,delayed 40 mg PO DAILY 01/15/24 04/29/24 release quetiapine 200 mg tablet 200 mg PO HS 01/15/24 04/29/24 sertraline 100 mg tablet 150 mg PO DAILY 01/15/24 04/29/24 Previous Rx's ?Medication ?Instructions ?Recorded ketorolac 10 mg tablet 10 mg PO Q8H 3 days #9 tabs 04/28/24 ondansetron 4 mg disintegrating 4 mg PO Q8H PRN nausea and 04/29/24 tablet vomiting 3 days #10 tabs Allergies Allergy/AdvReac Type Severity Reaction Status Date / Time Penicillins (PENICILLINS) Allergy Unknown as a Verified 01/25/23 17:54 child trazodone AdvReac Mild sinus Verified 01/25/23 17:54 trouble [facility] <YUE Grullon - Last Filed: 04/29/24 22:46> [facility] Disclaimer: The information contained in this section may have been updated after the patient was seen, as this information can be updated by other users. Medical History Anxiety Depression Gilbert disease Gilbert syndrome PTSD (post-traumatic stress disorder) Surgical History History of dental surgery Hx of cholecystectomy Hx of thumb surgery Social History Smoking Status: Current every day smoker second hand exposure: No alcohol intake: never substance use type: denies use current occupational status: employed Travel in the last 8 weeks: None household members: family housing: house current occupational exposures/hazards: No caffeine: Yes Have you lived/traveled outside [place] in past 30 days?: No Contact w/someone who lives/traveled outside [place] past 30 days?: No Exposure to someone with infectious disease in past 14 days?: No Do you have a fever (greater than 100.4 F or 38 C)?: No Have you tested positive for COVID-19: No Exposed to someone with COVID-19 in past 14 days?: No Do you have a sore throat?: No Do you have a cough?: No Do you have any weakness?: No Do you have any diarrhea?: No Are you experiencing any unusual bleeding?: No Do you have any muscle aches/pain?: Yes Do you have any abdominal pain?: No Are you experiencing loss of taste or smell?: No Other Medical History Have you received the Flu Vaccine for this season: No Have you received the Pneumonia Vaccine: No <YUE Grullon - Last Filed: 04/29/24 22:46> ROS Obtained: Yes Systems reviewed as appropriate & no additional complaints except as documented Physical Exam <YUE Grullon - Last Filed: 04/29/24 22:46> General General appearance: alert and in no apparent distress Head Head exam: atraumatic and normocephalic Eye Eye exam: Present normal appearance and EOMI Chest Chest inspection: Present symmetric chest wall rise Respiratory Respiratory exam: Present normal lung sounds bilaterally; Absent wheezes or stridor Cardiovascular Cardiovascular exam: Present regular rate and normal rhythm; Absent systolic murmur Abdominal Exam Abdominal exam: Present soft, tenderness (RLQ) and normal bowel sounds; Absent distention, guarding or rigidity Abdominal tenderness: Present RLQ Extremities Exam Extremities exam: Present full ROM Neurological Exam Neurological exam: Present alert and oriented X3 Psychiatric Psychiatric exam: Present normal affect and normal mood Skin Skin exam: Present warm, dry and intact Medical Decision Making <YUE Grullon - Last Filed: 04/29/24 22:46> Medical Records Screening: Per USPSTF and CDC recommendations, given the prevalence of disease in our region, it is our hospital?s policy to screen for HIV and viral Hepatitis for all patients aged 18 and over and those with ongoing risk factors. Jimmy Inquiry Pt receiving controlled substance: No Vital Signs: 04/29/24 15:57 04/29/24 17:00 04/29/24 17:30 Temperature 99.8 F H Temperature Source Temporal Artery Scan Pulse Rate 72 72 Pulse Rate [Radial] 78 Respiratory Rate 18 Blood Pressure 110/70 109/70 L Blood Pressure [R Arm] 137/69 Blood Pressure Mean [R Arm] 91 Blood Pressure Source [R Arm] Automatic Cuff 02 Sat by Pulse Oximetry 97 96 95 Oxygen Delivery Method Room Air Room Air Room Air 04/29/24 18:00 04/29/24 18:39 04/29/24 19:16 Temperature Temperature Source Pulse Rate 73 72 88 Pulse Rate [Radial] Respiratory Rate Blood Pressure 115/71 114/71 132/89 Blood Pressure [R Arm] Blood Pressure Mean [R Arm] Blood Pressure Source [R Arm] 02 Sat by Pulse Oximetry 95 97 97 Oxygen Delivery Method Room Air Room Air Room Air 04/29/24 19:30 04/29/24 20:00 04/29/24 20:30 Temperature Temperature Source Pulse Rate 72 73 94 H Pulse Rate [Radial] Respiratory Rate Blood Pressure 133/86 117/72 134/91 H Blood Pressure [R Arm] Blood Pressure Mean [R Arm] Blood Pressure Source [R Arm] 02 Sat by Pulse Oximetry 98 97 93 L Oxygen Delivery Method Room Air 04/29/24 21:00 04/29/24 21:52 Temperature 98.2 F Temperature Source Oral Pulse Rate 72 70 Pulse Rate [Radial] Respiratory Rate 18 Blood Pressure 119/76 106/62 L Blood Pressure [R Arm] Blood Pressure Mean [R Arm] Blood Pressure Source [R Arm] 02 Sat by Pulse Oximetry 95 Oxygen Delivery Method Room Air Lab Data Lab Results 04/29/24 16:33: WBC 4.3 L, RBC 4.70, Hgb 14.1, Hct 39.9 L, MCV 84.9, MCH 30.0, MCHC 35.3, RDW 11.8, Plt Count 210, MPV 9.0, Neut % (Auto) 52.4, Lymph % (Auto) 33.4, [place] % (Auto) 9.4 H, Eos % (Auto) 3.9, Baso % (Auto) 0.7, Neut # (Auto) 2.3, Lymph # (Auto) 1.5, [place] # (Auto) 0.4, Eos # (Auto) 0.2, Baso # (Auto) 0.0, Sodium 139, Potassium 3.8, Chloride 106, Carbon Dioxide 26, Anion Gap 10.8, BUN 14 D, Creatinine 0.90, Estimated Creat Clear 136, Estimated GFR 106, Est GFR ( Amer) 128 D, Glucose 87, Lactate 0.9, Calcium 9.0, Total Bilirubin 1.1, AST 40, ALT 29, Alkaline Phosphatase 93, Total Protein 6.7, Albumin 4.5, Globulin 2.2, Albumin/Globulin Ratio 2.0 H, Lipase 57 04/29/24 16:33 04/29/24 16:33 Orders (Tests/Meds): ED MEDICATIONS Discontinued Medications Generic Name Dose Route Start Last Admin Trade Name Freq PRN Reason Stop Dose Admin Droperidol 2.5 mg 04/29/24 19:34 04/29/24 19:50 Droperidol 5mg/2ml Vial IV 04/29/24 19:35 2.5 mg ONCE ONE Administration Hydromorphone HCl 0.5 mg 04/29/24 19:04 04/29/24 19:08 Hydromorphone 2mg/Ml Syringe IV 04/29/24 19:05 0.5 mg ONCE ONE Administration Iopamidol 75 ml 04/29/24 18:32 04/29/24 18:33 Iopamidol-370 (76%);100ml Bottle IV 04/29/24 18:33 75 ml ONCE ONE Administration Morphine Sulfate 4 mg 04/29/24 18:22 04/29/24 18:34 Morphine 4mg/Ml Syringe IV 04/29/24 18:23 4 mg ONCE ONE Administration Ondansetron HCl 4 mg 04/29/24 16:15 04/29/24 16:49 Ondansetron 4mg/2ml Vial IV 04/29/24 16:16 4 mg ONCE ONE Administration Sodium Chloride 10 ml 04/29/24 18:32 04/29/24 18:33 Sodium Chloride 0.9% 10ml Syr (Rad Only) IV 05/29/24 18:31 10 ml NEEDED PRN Administration Maintain IV Site ORDERS Category Date Time Status CT abdomen pelvis w con Stat Cat Scan 04/29/24 18:21 Completed CBC w/Auto Diff [Complete Blood Count Auto Diff] Stat Lab 04/29/24 16:33 Completed CMP [Comprehensive Metabolic Panel] Stat Lab 04/29/24 16:33 Completed Lactic Acid Stat Lab 04/29/24 16:33 Completed Lipase Stat Lab 04/29/24 16:33 Completed Medical Decision Narrative: In summary patient is a 23-year-old male who presents the emergency department for evaluation of right lower quadrant abdominal pain. Patient is hemodynamically stable upon arrival, afebrile. Right lower quadrant abdominal tenderness without guarding. Differential diagnosis includes mesenteric adenitis, appendicitis, gastroenteritis, viral illness. Initial workup will be conducted with labs, repeat CT. Initial inventions include Zofran, pain control. Initial workup reviewed by me unremarkable labs and normal repeat CT abdomen pelvis. Upon repeat evaluation patient had resolution of pain after droperidol. Given this patient is appropriate for discharge home with strict return precautions and follow-up with PCP. <Archie Warner MD - Last Filed: 04/29/24 23:17> Vital Signs: 04/29/24 15:57 04/29/24 17:00 04/29/24 17:30 Temperature 99.8 F H Temperature Source Temporal Artery Scan Pulse Rate 72 72 Pulse Rate [Radial] 78 Respiratory Rate 18 Blood Pressure 110/70 109/70 L Blood Pressure [R Arm] 137/69 Blood Pressure Mean [R Arm] 91 Blood Pressure Source [R Arm] Automatic Cuff 02 Sat by Pulse Oximetry 97 96 95 Oxygen Delivery Method Room Air Room Air Room Air 04/29/24 18:00 04/29/24 18:39 04/29/24 19:16 Temperature Temperature Source Pulse Rate 73 72 88 Pulse Rate [Radial] Respiratory Rate Blood Pressure 115/71 114/71 132/89 Blood Pressure [R Arm] Blood Pressure Mean [R Arm] Blood Pressure Source [R Arm] 02 Sat by Pulse Oximetry 95 97 97 Oxygen Delivery Method Room Air Room Air Room Air 04/29/24 19:30 04/29/24 20:00 04/29/24 20:30 Temperature Temperature Source Pulse Rate 72 73 94 H Pulse Rate [Radial] Respiratory Rate Blood Pressure 133/86 117/72 134/91 H Blood Pressure [R Arm] Blood Pressure Mean [R Arm] Blood Pressure Source [R Arm] 02 Sat by Pulse Oximetry 98 97 93 L Oxygen Delivery Method Room Air 04/29/24 21:00 04/29/24 21:52 Temperature 98.2 F Temperature Source Oral Pulse Rate 72 70 Pulse Rate [Radial] Respiratory Rate 18 Blood Pressure 119/76 106/62 L Blood Pressure [R Arm] Blood Pressure Mean [R Arm] Blood Pressure Source [R Arm] 02 Sat by Pulse Oximetry 95 Oxygen Delivery Method Room Air Lab Data Lab Results 04/29/24 16:33: WBC 4.3 L, RBC 4.70, Hgb 14.1, Hct 39.9 L, MCV 84.9, MCH 30.0, MCHC 35.3, RDW 11.8, Plt Count 210, MPV 9.0, Neut % (Auto) 52.4, Lymph % (Auto) 33.4, [place] % (Auto) 9.4 H, Eos % (Auto) 3.9, Baso % (Auto) 0.7, Neut # (Auto) 2.3, Lymph # (Auto) 1.5, [place] # (Auto) 0.4, Eos # (Auto) 0.2, Baso # (Auto) 0.0, Sodium 139, Potassium 3.8, Chloride 106, Carbon Dioxide 26, Anion Gap 10.8, BUN 14 D, Creatinine 0.90, Estimated Creat Clear 136, Estimated GFR 106, Est GFR ( Amer) 128 D, Glucose 87, Lactate 0.9, Calcium 9.0, Total Bilirubin 1.1, AST 40, ALT 29, Alkaline Phosphatase 93, Total Protein 6.7, Albumin 4.5, Globulin 2.2, Albumin/Globulin Ratio 2.0 H, Lipase 57 Orders (Tests/Meds): ED MEDICATIONS Discontinued Medications Generic Name Dose Route Start Last Admin Trade Name Freq PRN Reason Stop Dose Admin Droperidol 2.5 mg 04/29/24 19:34 04/29/24 19:50 Droperidol 5mg/2ml Vial IV 04/29/24 19:35 2.5 mg ONCE ONE Administration Hydromorphone HCl 0.5 mg 04/29/24 19:04 04/29/24 19:08 Hydromorphone 2mg/Ml Syringe IV 04/29/24 19:05 0.5 mg ONCE ONE Administration Iopamidol 75 ml 04/29/24 18:32 04/29/24 18:33 Iopamidol-370 (76%);100ml Bottle IV 04/29/24 18:33 75 ml ONCE ONE Administration Morphine Sulfate 4 mg 04/29/24 18:22 04/29/24 18:34 Morphine 4mg/Ml Syringe IV 04/29/24 18:23 4 mg ONCE ONE Administration Ondansetron HCl 4 mg 04/29/24 16:15 04/29/24 16:49 Ondansetron 4mg/2ml Vial IV 04/29/24 16:16 4 mg ONCE ONE Administration Sodium Chloride 10 ml 04/29/24 18:32 04/29/24 18:33 Sodium Chloride 0.9% 10ml Syr (Rad Only) IV 05/29/24 18:31 10 ml NEEDED PRN Administration Maintain IV Site ORDERS Category Date Time Status CT abdomen pelvis w con Stat Cat Scan 04/29/24 18:21 Completed CBC w/Auto Diff [Complete Blood Count Auto Diff] Stat Lab 04/29/24 16:33 Completed CMP [Comprehensive Metabolic Panel] Stat Lab 04/29/24 16:33 Completed Lactic Acid Stat Lab 04/29/24 16:33 Completed Lipase Stat Lab 04/29/24 16:33 Completed Medical Decision Narrative: In summary patient is a 23-year-old male who presents the emergency department for evaluation of right lower quadrant abdominal pain. Patient is hemodynamically stable upon arrival, afebrile. Right lower quadrant abdominal tenderness without guarding. Differential diagnosis includes mesenteric adenitis, appendicitis, gastroenteritis, viral illness. Initial workup will be conducted with labs, repeat CT. Initial inventions include Zofran, pain control. Initial workup reviewed by me unremarkable labs and normal repeat CT abdomen pelvis. Upon repeat evaluation patient had resolution of pain after droperidol. Given this patient is appropriate for discharge home with strict return precautions and follow-up with PCP. I was consulted by the JORGE LUIS, and we discussed the complexity of the problems being addressed.I approved the treatment and management plan for this patient?s care in the Emergency Department, thus performing a substantive portion of the medical decision making.Signed, Archie Warner MD [facility] <YUE Grullon - Last Filed: 04/29/24 22:46> Critical Care Time Critical Care Time: No
== END 2024-04-29 21:54 | disposition home or self-care (01) ==
PROVIDERS: Physician Assistant; Emergency Provider Emergency Medicine; PCP Family Medicine
DX: R10.31 Right lower quadrant pain (principal); R11.2 Nausea with vomiting, unspecified; R50.9 Fever, unspecified; Z72.0 Tobacco use
CPT/HCPCS: 74177; 80053; 83605; 83690; 85025; 93005; 96374; 96375; 99285; J1171; J1790; J2270; J2405; Q9967